=== PATIENT | female | born 1950 | race Caucasian/White ===

== ENCOUNTER 2019-09-13 08:12 | Outpatient (CLI) | payer MEDICARE, OTHER, SELFPAY ==
--- NOTE | ~2019-09-13 | MM_ITS ---
EXAMINATION: MM screening [facility] BI w brittany HISTORY: Screening mammogram TECHNIQUE: Craniocaudal and mediolateral oblique 3-D tomosynthesis images were obtained and synthetic 2-D images were generated. CAD analysis was submitted and interpreted. COMPARISON: Comparison to multiple prior studies sequentially, with oldest reviewed study dated 03/10. BREAST PARENCHYMAL COMPOSITION: There are scattered areas of fibroglandular density. FINDINGS: There is no evidence of suspicious mass, calcification, or architectural distortion to sugg est malignancy in either breast. There has been no suspicious interval change. IMPRESSION: 1. No mammographic evidence of malignancy. 2. Recommend routine screening mammography in one year. BI-RADS Category 1: Negative Reviewed, dictated and finalized at location A.
== END 2019-09-13 08:13 | disposition home or self-care (01) ==
PROVIDERS: PCP Internal Medicine; Visit Provider Internal Medicine
DX: Z12.31 Encounter for screening mammogram for malignant neoplasm of breast (principal)
CPT/HCPCS: 77063; 77067

== ENCOUNTER 2019-10-04 07:13 | Outpatient (CLI) | payer MEDICARE, OTHER, SELFPAY ==
--- NOTE | ~2019-10-04 | XR_ITS ---
EXAMINATION: XR bone survey comp/metastic DATE: 10/04/2019 07:51 INDICATION: Monoclonal gammopathy of uncertain significance. TECHNIQUE: 29 views of a skeletal survey were obtained. COMPARISON: Skeletal survey 10/02/2018, CT abdomen and pelvis 01/20/2010 FINDINGS: There is no lytic lesion to suggest multiple myeloma. There is a calcification in right upp er quadrant, consistent with cholelithiasis. There is mild cervical spondylosis and severe lumbar spo ndylosis. IMPRESSION: 1. No evidence of multiple myeloma. Reviewed, dictated and finalized at location A.
== END 2019-10-04 07:14 | disposition home or self-care (01) ==
LOC: ANHIMG 07:20
PROVIDERS: PCP Internal Medicine; Visit Provider Internal Medicine Medical Oncology
DX: D47.2 Monoclonal gammopathy (principal); M25.551 Pain in right hip
CPT/HCPCS: 77075

== ENCOUNTER 2020-01-27 07:31 | Outpatient (CLI) | payer MEDICARE, OTHER, SELFPAY ==
--- NOTE | ~2020-01-27 | PE_ITS ---
EXAMINATION: PET whole body melanoma DATE: 01/27/2020 10:03 INDICATION: Multiple myeloma. Abnormality of plasma protein. TECHNIQUE: Blood glucose level was 98 mg/dL. 10.124 mCi of 18-fluorodeoxyglucose (18-FDG) was adminis tered i.v. Low dose computed tomography (CT) images were acquired from the skull vertex to the feet f or attenuation correction and anatomic localization. Automated exposure control was employed. Dose-le ngth product (DLP) was mGy-cm. Positron emission tomography (PET) images were acquired in the same di stribution. COMPARISON: CT abdomen and pelvis 01/20/2010, skeletal survey 10/04/2019 FINDINGS: Head/neck: There is increased activity in the oropharynx, sublingual glands, submandibular glands, an d glottis without CT correlate, likely physiologic. There are no pathologically enlarged lymph nodes. Chest: There is mild scarring at the lung apices. Calcified right lung nodules and calcified right hi lar and mediastinal lymph nodes are consistent with old granulomatous disease. No pleural effusion. T he heart size is normal. No pericardial effusion. There is mild thoracic spondylosis. Abdomen/pelvis/lower limbs: The liver is normal. There are gallstones in the gallbladder, which is co ntracted. The spleen, pancreas, adrenal glands, and kidneys are normal. There are no dilated loops of bowel. There are no pathologically enlarged lymph nodes. There is no free intraperitoneal fluid. The re is severe lumbar spondylosis. IMPRESSION: 1. No evidence of malignancy. Reviewed, dictated and finalized at location A.
[2020-01-27 07:55] LABS: Glucose Point of Care 98 (65-105)
== END 2020-01-27 07:32 | disposition home or self-care (01) ==
PROVIDERS: PCP Internal Medicine; Visit Provider Internal Medicine Medical Oncology
DX: R77.9 Abnormality of plasma protein, unspecified (principal)
CPT/HCPCS: 78816; A9552

== ENCOUNTER 2020-04-14 13:55 | Outpatient (CLI) | payer MEDICARE, OTHER, SELFPAY ==
--- NOTE | ~2020-04-14 | DEXA_ITS ---
Bone Density Report Name: Deloris Wang Age: 70 Sex: Female Ethnicity: White Date of : 1950 Indication: postmenopausal; Referring Provider: Tuan Patricia Study: Bone densitometry was performed. Exam Date: April 14, 2020 Accession number: [id number] Bone Density: Region BMD T-score Z-score Classification AP Spine (L1-L4) 1.128 0.7 2.7 Normal Femoral Neck (Left) 0.693 -1.4 0.3 Osteopenia Total Hip (Left) 0.857 -0.7 0.7 Normal Total Hip Bilateral Avg 0.822 -1.0 0.4 Osteopenia Femoral Neck (Right) 0.604 -2.2 -0.5 Osteopenia Total Hip (Right) 0.785 -1.3 0.1 Osteopenia World Health Organization criteria for BMD impression classify patients as: Normal (T-score at or above -1.0), Osteopenia (T-score between -1.0 and -2.5), or Osteoporosis (T-score at or below -2.5). 10-year Fracture Risk(1): Major Osteoporotic Fracture 12% Hip Fracture 2.3% Reported Risk Factors: [place] (), Neck BMD=0.604, BMI=23.4 (1) FRAX(R) Version 3.08. Fracture probability calculated for an untreated patient. Fracture probability may be lower if the patient has received treatment. Previous Exams: Region Exam Age BMD T-score BMD Change BMD Change Date g/cm2 vs Baseline vs Previous AP Spine(L1-L4) 04/14/2020 70 1.128 0.7 -0.161(-12.5%) -0.096(-7.9%)* 10/19/2013 63 1.224 1.6 -0.064(-5.0%)# 0.015(1.2%)# 05/10/2010 60 1.210 1.5 -0.079(-6.1%)* -0.079(-6.1%)* 03/24/2008 58 1.289 2.2 Total Hip(Left) 04/14/2020 70 0.857 -0.7 -0.043(-4.8%)# -0.059(-6.5%)* 10/19/2013 63 0.917 -0.2 0.016(1.8%)# 0.021(2.3%)# 05/10/2010 60 0.896 -0.4 -0.005(-0.5%) -0.005(-0.5%) 03/24/2008 58 0.900 -0.3 Total Hip(Right) 04/14/2020 70 0.785 -1.3 -0.066(-7.8%)# -0.063(-7.4%)* 10/19/2013 63 0.848 -0.8 -0.004(-0.5%)# 0.002(0.2%)# 05/10/2010 60 0.846 -0.8 -0.006(-0.6%) -0.006(-0.6%) 03/24/2008 58 0.852 -0.7 *Denotes significance at 95% confidence level, LSC for AP Spine = 0.022 g/cm2, LSC for Total Hip = 0.027 g/cm2 Clinical Information Provided by Patient: Patient maximum height was 66 Menopause Age: 52 Drinks caffeinated beverages Onset of menses at age 15 Number of children 2 Impression: The patient has low bone mass, based on the Right Femoral Neck T-score. The patient has an estimated ten-year risk of hip fracture of 2.3% and an estimated ten-year risk of major fracture of 12%, based
== END 2020-04-14 13:56 | disposition home or self-care (01) ==
LOC: ANHIMG 13:55
PROVIDERS: PCP Internal Medicine; Visit Provider Internal Medicine
DX: Z78.0 Asymptomatic menopausal state (principal); M85.89 Other specified disorders of bone density and structure, multiple sites
CPT/HCPCS: 77080

== ENCOUNTER 2020-10-03 13:43 | Outpatient (CLI) | payer MEDICARE, OTHER, SELFPAY ==
--- NOTE | ~2020-10-03 | XR_ITS ---
EXAMINATION: XR bone survey comp/metastic EXAM DATE: 10/03/2020 14:11 INDICATION: Smoldering myeloma. Right hip pain and left lower leg pain. TECHNIQUE: Frontal and lateral projections of following regions obtained; right humerus, left humeru s, right forearm, left forearm, right femur, left femur, right tibia, left tibia, lumbar spine, thora cic spine, cervical spine. Lateral projection skull. Frontal chest x-ray. Comparison is made to yossi or examination from 10/04/2019. FINDINGS: There are no osteoblastic or osteolytic lesions identified. Moderate to severe disc diseas e L2-3 and L4-5. Otherwise mild bony degenerative changes. No confluent consolidation, pneumothorax o r pleural effusion suspected. Cardiomediastinal silhouette is normal. IMPRESSION: No radiographic evidence of osseous malignancy. Reviewed, dictated and finalized at location A.
== END 2020-10-03 13:44 | disposition home or self-care (01) ==
LOC: ANHIMG 13:47
PROVIDERS: PCP Internal Medicine; Visit Provider Internal Medicine Medical Oncology
DX: C90.00 Multiple myeloma not having achieved remission (principal); M89.8X9 Other specified disorders of bone, unspecified site; M47.816 Spondylosis without myelopathy or radiculopathy, lumbar region
CPT/HCPCS: 77075

== ENCOUNTER 2020-12-06 11:28 | Outpatient (CLI) | payer MEDICARE, OTHER, SELFPAY ==
--- NOTE | ~2020-12-06 | MM_ITS ---
EXAMINATION: MM screening [facility] BI w brittany HISTORY: Screening mammogram TECHNIQUE: Craniocaudal and mediolateral oblique 3-D tomosynthesis images were obtained and synthetic 2-D images were generated. CAD analysis was submitted and interpreted. COMPARISON: 09/13/2019, 09/11/2018, 07/15/2017 bilateral digital screening mammogram examinations BREAST PARENCHYMAL COMPOSITION: There are scattered areas of fibroglandular density. FINDINGS: There is no evidence of suspicious mass, calcification, or architectural distortion to sugg est malignancy in either breast. There has been no suspicious interval change. IMPRESSION: 1. No mammographic evidence of malignancy. 2. Recommend routine screening mammography in one year. BI-RADS Category 1: Negative Reviewed, dictated and finalized at location A.
== END 2020-12-06 11:29 | disposition home or self-care (01) ==
PROVIDERS: PCP Internal Medicine; Visit Provider Internal Medicine
DX: Z12.31 Encounter for screening mammogram for malignant neoplasm of breast (principal)
CPT/HCPCS: 77063; 77067

== ENCOUNTER 2022-01-19 08:33 | Outpatient (CLI) | payer MEDICARE, OTHER, SELFPAY ==
--- NOTE | ~2022-01-19 | MM_ITS ---
EXAMINATION: MM screening [facility] BI w brittany HISTORY: Screening mammogram TECHNIQUE: Craniocaudal and mediolateral oblique 3-D tomosynthesis images were obtained and synthetic 2-D images were generated. CAD analysis was submitted and interpreted. COMPARISON: 11/2020, 09/13/2019, 09/11/2018 bilateral screening mammogram examinations BREAST PARENCHYMAL COMPOSITION: There are scattered areas of fibroglandular density. FINDINGS: There is no evidence of suspicious mass, calcification, or architectural distortion to sugg est malignancy in either breast. There has been no suspicious interval change. IMPRESSION: 1. No mammographic evidence of malignancy. 2. Recommend routine screening mammography in one year. BI-RADS Category 1: Negative Reviewed, dictated and finalized at location A.
== END 2022-01-19 08:34 | disposition home or self-care (01) ==
LOC: ANHIMG 08:35
PROVIDERS: PCP Internal Medicine; Visit Provider Internal Medicine
DX: Z12.31 Encounter for screening mammogram for malignant neoplasm of breast (principal)
CPT/HCPCS: 77063; 77067

== ENCOUNTER 2022-02-26 16:55 | Emergency (ER) | payer MEDICARE, OTHER, SELFPAY ==
[2022-02-26] VITALS (42 sets, daily range): BP systolic 133–158; BP diastolic 59–77; PULSE 82; RESP 20; TEMP 36.6; O2SAT 92–100
--- NOTE | ~2022-02-26 | CT_ITS ---
EXAMINATION: CTA chest abdomen pelvis DATE: 02/26/2022 21:21 INDICATION: L flank pain, across upper ABD, r/o PE/dissect . TECHNIQUE: Computed tomography (CT) of the chest, abdomen, and pelvis was performed with 100 mL Omnip aque-350 intravenous contrast in the arterial phase. Automated exposure control and iterative reconst ruction technique were employed. The dose-length product was 499.84 mGy-cm. COMPARISON: CT abdomen pelvis without contrast, same date FINDINGS: Thoracic aorta: No significant dilation, dissection or calcification. Lung parenchyma and airways: Lungs and airways are clear. No central or segmental pulmonary emboli de tected. Thoracic inlet, axillae and chest wall: No thyroid or soft tissue mass. No axillary lymphadenopathy. Mediastinum: No mass or lymphadenopathy. Heart and pericardium: Normal heart size. No pericardial effusion. Coronary artery calcifications: Mild. Pleura: No effusion or mass. Thoracic bones: No acute osseous finding in the chest. ABDOMEN/PELVIS: Liver: Mild intrahepatic biliary dilation. Biliary/Gallbladder: Gallbladder is absent. We demonstration of the course presumed postsurgical calc ification in the gallbladder fossa mild dilation of the common duct Pancreas: No mass. Pancreatic duct visualized but not overtly dilated. Spleen: Normal. Adrenals:No mass. Kidneys: No mass, stone, or hydronephrosis. GI tract: Antral wall edema, not evident in the prior noncontrast study. No small or large bowel dila tion. Normal appendix. Mesentery/Peritoneum: No ascites, mass, or free air. Retroperitoneum: No mass. No aortic aneurysm, dissection, or significant branch vessel stenosis. Pelvis: Pelvic organs are within normal limits Soft Tissues: Soft tissues and body wall unremarkable. Abdominopelvic bones: No acute osseous finding in the abdomen/pelvis. IMPRESSION: 1. No aortic aneurysm, dissection, or significant branch vessel stenosis. 2. No central or segmental pulmonary embolus. The study was not optimized for subsegmental and more d istal emboli. 3. Antral gastritis. 4. Mild intrahepatic and extrahepatic biliary duct dilatation, more evident in this postcontrast stud y, presumably due to post cholecystectomy state. Correlate with obstructive biliary labs. Reviewed, dictated and finalized at location K. IMPRESSION: 1. No aortic aneurysm, dissection, or significant branch vessel stenosis. 2. No central or segmental pulmonary embolus. The study was not optimized for s ubsegmental and more distal emboli. 3. Antral gastritis. 4. Mild intrahepatic and extrahepatic biliary duct dilatation, more evident in this postcontrast study, presumably due to post cholecystectomy state. Correlat e with obstructive biliary labs.
--- NOTE | ~2022-02-26 | CT_ITS ---
EXAMINATION: CT abdomen pelvis wo con DATE: 02/26/2022 18:18 INDICATION: L flank/Lsided ABD pain, r/o stone TECHNIQUE: Computed tomography (CT) of the abdomen and pelvis was performed without intravenous contr ast. Automated exposure control and iterative reconstruction technique were employed. The dose-length product was 312.31 mGy-cm. COMPARISON: 01/20/2010. FINDINGS: Lower thorax: Unremarkable Liver: Normal. Biliary/Gallbladder: Gallbladder is absent. Coarse calcification in the gallbladder fossa, stable and likely postsurgical. No bile duct dilation. Pancreas: No mass or duct dilation. Spleen: Normal. Adrenals:No mass. Kidneys: No mass, stone, or hydronephrosis. GI tract: No small or large bowel dilation. Normal appendix. Mesentery/Peritoneum: No ascites, mass, or free air. Retroperitoneum: No mass. Pelvis: Pelvic organs are within normal limits. Soft Tissues: Soft tissues and body wall unremarkable. Bones: No acute osseous finding. IMPRESSION: No acute abdominopelvic process detected. No CT evidence of urolithiasis. Reviewed, dictated and finalized at location K.
[2022-02-26 17:15] LABS: Basophils Absolute Auto 0.1 K/mm3 (0.0-0.1); Basophils Percent Auto 0.9 % (0.2-1.2); Eosinophils Absolute Auto 0.1 K/mm3 (0-0.3); Hematocrit 38.1 % (37.0-47.0); Hemoglobin 12.6 g/dL (12.0-15.0); Immature Granulocyte Absolute 0.01 K/mm3 (0.00-0.031); Immature Granulocyte Percent A 0.2 % (0-0.5); Lymphocytes Absolute Auto 2.23 K/mm3 (0.9-3.2); Lymphocytes Percent Auto 38.4 % (18.3-44.2); Mean Corpuscular HGB Conc 33.1 g/dl (32-36); Mean Corpuscular Hemoglobin 29.6 pg (26-34); Mean Corpuscular Volume 89.4 fl (80-100); Mean Platelet Volume 9.3 fl (7.4-10.4); Monocytes Absolute Auto 0.5 K/mm3 (0.1-0.6); Monocytes Percent Auto 9.1 % (2.6-8.5); Neutrophils Absolute Auto 2.9 K/mm3 (1.3-6.7); Neutrophils Percent Auto 50.4 % (45.5-73.1); Platelet Count Result 283 k/mm3 (150-375); Red Blood Count 4.26 M/mm3 (4.2-5.4); Red Cell Distribution Width 12.5 % (11.5-14.5); White Blood Count 5.8 K/mm3 (4.5-10.0)
[2022-02-26 17:25] LABS: Alanine Aminotransferase 13 U/L (6-35); Albumin Level 4.4 g/dL (3.5-5.1); Alkaline Phosphatase 105 U/L (38-126); Anion Gap 12 mmol/L (8-16); Aspartate Amino Transferase 25 U/L (14-36); Bilirubin,Total 0.3 mg/dL (0.2-1.3); Blood Urea Nitrogen 15 mg/dL (7-17); Calcium 9.8 mg/dL (8.4-10.2); Carbon Dioxide 29 mmol/L (22-30); Chloride 99 mmol/L (98-107); Estimated CRCL calculation 53 ml/min; Estimated Glomerular Filt Rate > 60; Glucose 117 mg/dL (65-110); Lipase 114 U/L (23-300); Potassium 3.8 mmol/L (3.4-5.0); Sodium 140 mmol/L (137-145)
[2022-02-26 18:03] LABS: Add Urine Microscopic? NO; Appearance Urine Clear (Clear); Bilirubin Urine Negative (Negative); Blood Urine Negative (Negative); Color Urine Yellow (Yellow); Glucose Urine UA Negative (Negative); Ketones Urine Negative (Negative); Leukocyte Esterase Ur Negative LEU/UL (Negative); Nitrate Urine Negative (Negative); Protein Urine Negative (Negative); Specific Grav Ur 1.015 (1.001-1.035); Urobilinogen Urine 0.2 mg/dL (<2.0); pH Urine 8.5 (5.0-9.0)
--- NOTE | 2022-02-26 18:07 | ED.ABDPAIN ---
HPI - Abdominal Pain General Chief Complaint: Abdominal Pain Stated Complaint: upper abd pain Time Seen by Provider: 02/26/22 17:51 Source: patient Mode of arrival: EMS Limitations: no limitations History of Present Illness HPI narrative: Patient is a 72-year-old female who presents to the ED via EMS with report of LUQ/L flank pain. Patient reports she suddenly developed pain around 4 PM today after urinating. She denied any dysuria, hematuria, difficulty urinating. Pain was constant in her left upper abdomen and left flank region. She did not try anything for pain. EMS was called. Patient also reports having nausea, no vomiting. She was given 4 mg of Zofran IV via EMS and does report improvement of nausea. Patient has never had pain like this before. Denies any history of kidney stones or diverticulitis. Denies any recent diarrhea or constipation. No fevers. Related Data Home Medications Medication Instructions Recorded Confirmed ascorbic acid (vitamin C) 500 mg 1,000 mg PO 03/21/20 03/21/20 capsule aspirin 81 mg tablet,delayed 81 mg PO DAILY 03/21/20 03/21/20 release (Adult Low Dose Aspirin) omega-3 fatty acids 1,000 mg 1,000 mg PO DAILY 03/21/20 03/21/20 capsule (Fish Oil Concentrate) cholecalciferol (vitamin D3) 25 25 mcg PO DAILY 04/10/21 mcg (1,000 unit) capsule Allergies Allergy/AdvReac Type Severity Reaction Status Date / Time sulfamethoxazole Allergy Mild itching Verified 02/26/22 17:01 Sulfa (Sulfonamide Allergy Unknown Itching Verified 02/26/22 17:01 Antibiotics) Review of Systems Review of Systems: CONSTITUTIONAL: Denies fever, chills, or sweats. CARDIOVASCULAR: Denies chest pain. RESPIRATORY: Denies dyspnea. GASTROINTESTINAL: Reports nausea, L sided ABD pain. Denies constipation, vomiting, or diarrhea. GENITOURINARY: Denies dysuria or hematuria. MUSCULOSKELETAL: Reports L flank pain. All systems reviewed & are unremarkable except as noted in HPI and below PMFSH Past Medical History Medical History (Updated 02/26/22 @ 23:44 by Tatyana Ge PA-C) Anemia Chicken pox Cholecystectomy planned 2008 Family history of hemochromatosis History of one miscarriage Hyperlipidemia LDL goal <130 Monoclonal gammopathy of unknown significance Mumps Osteopenia Osteoporosis Raynaud's disease with gangrene Shingles Smoldering myeloma Vitamin D deficiency Surgical History Surgical History (Updated 02/26/22 @ 18:12 by Tatyana Ge PA-C) History of cholecystectomy Hx of hysterectomy Family History Family History Father Lung cancer Kidney disease Mother Cardiomyopathy Social History Social History Social History: Caffeine-3 cups daily Smoking status: Never smoker Second hand tobacco smoke exposure: No Alcohol intake: current Alcohol use details: occasionally wine Exam Narrative: GENERAL: Well appearing, well-nourished, non-toxic, in no acute distress. HEAD: Normocephalic, atraumatic. NECK: Supple. No adenopathy, no masses. RESPIRATORY: Airway patent, respirations nonlabored. Clear to auscultation bilaterally, no rales, rhonchi, wheezing. CARDIOVASCULAR: Regular rate and rhythm without murmurs, rubs, or gallops. Peripheral pulses 2+ and equal bilaterally. ABDOMINAL: Soft, tenderness to palpation in left upper quadrant/left lateral abdomen. Nondistended, no hepatosplenomegaly. Normoactive BS. Left-sided CVA tenderness to percussion. MUSCULOSKELETAL: Moves all extremities. Strength/ROM intact without gross deformities. No midline spinal tenderness. Mild tenderness palpation left lower back. SKIN: Warm, dry, normal color. No rashes. NEURO: A&O X3. Speech clear. Cranial nerves II-XII grossly intact. Steady gait. No ataxic movements. PSYCHIATRIC: Appropriate mood and affect. Normal interaction. Course Vital Signs Vital signs: Vital Signs
[2022-02-26 18:13] LABS: Bacteria Urine Trace /hpf; Squamous Epithelial Cell Urine Rare /hpf (Few); WBC Urine 0-3 /hpf
[2022-02-26] MEDS: MORPHINE SULFATE (*CRX) 2 MG/ML INJ IV PUSH (19:37)
[2022-02-26] MEDS: SODIUM CHLORIDE 0.9% IV 1,000 ML 999 ML IV CONT ×2 (19:38→22:17)
[2022-02-26] MEDS: ONDANSETRON INJ 4 MG/2 ML VIAL IV PUSH (20:47)
[2022-02-26] MEDS: HYDROmorphone HCL INJ (*CRX) 1 MG/ML SYR IV PUSH (20:48)
[2022-02-26 21:44] LABS: Troponin I < 0.012 ng/mL (0.000-0.034)
[2022-02-26 21:45] LABS: D Dimer < 0.27 ug/mL (<0.48)
[2022-02-26] MEDS: BELLADONNA ALK/PHENOB ELIX 10 ML, MAG HYDROX/ALUMINUM HYD/SIMETH 30 ML, LIDOCAINE HCL 2... PO (22:16)
[2022-02-26] MEDS: KETOROLAC 30 MG/ML VIAL (*BKC) IV PUSH (22:17)
[2022-02-26] MEDS: METOCLOPRAMIDE HCL INJ 10 MG/2 ML VIAL IV PUSH (22:17)
[2022-02-27 00:01] VITALS: BP 120/65; O2SAT 98
[2022-02-27 00:02] VITALS: O2SAT 98
[2022-02-27 00:15] VITALS: O2SAT 100
[2022-02-27 00:16] VITALS: BP 121/72; O2SAT 100
[2022-02-27 00:31] VITALS: BP 133/70
== END 2022-02-27 01:14 | disposition home or self-care (01) ==
PROVIDERS: Physician Assistant; Emergency Provider Emergency Medicine; PCP Internal Medicine
DX: R10.12 Left upper quadrant pain (principal); K29.70 Gastritis, unspecified, without bleeding; D64.9 Anemia, unspecified; E78.5 Hyperlipidemia, unspecified; M85.80 Other specified disorders of bone density and structure, unspecified site; M81.0 Age-related osteoporosis without current pathological fracture; I73.01 Raynaud's syndrome with gangrene; E55.9 Vitamin D deficiency, unspecified; D47.2 Monoclonal gammopathy; R93.2 Abnormal findings on diagnostic imaging of liver and biliary tract
CPT/HCPCS: 36415; 71275; 74174; 74176; 80053; 81003; 83690; 84484; 85025; 85380; 96361; 96374; 96375; 99284; A9270; J1170; J1885; J2270; J2405; J2765; J7030; Q9967

== ENCOUNTER 2022-04-22 09:15 | Outpatient (CLI) | payer MEDICARE, OTHER, SELFPAY ==
[2022-04-22 18:47] LABS: Anion Gap 14 mmol/L (8-16); Blood Urea Nitrogen 10 mg/dL (7-17); Calcium 9.6 mg/dL (8.4-10.2); Carbon Dioxide 28 mmol/L (22-30); Chloride 100 mmol/L (98-107); Cholesterol 201 mg/dL (0-200); Estimated Glomerular Filt Rate > 60; Glucose 97 mg/dL (65-110); HDL Direct 45 mg/dL; Sodium 142 mmol/L (137-145); Triglycerides 152 mg/dL (<150)
[2022-04-22 18:58] LABS: LDL Cholesterol Direct 101 mg/dL
[2022-04-22 19:03] LABS: Vitamin D 25 Hydroxy 38.4 ng/mL
== END 2022-04-22 09:16 | disposition home or self-care (01) ==
LOC: ANHGOSHLAB 09:18
PROVIDERS: PCP Internal Medicine; Visit Provider Clinical Nurse Specialist
DX: E55.9 Vitamin D deficiency, unspecified (principal); E78.49 Other hyperlipidemia; E78.5 Hyperlipidemia, unspecified
CPT/HCPCS: 36415; 80048; 80061; 82306

== ENCOUNTER 2023-01-09 11:32 | Outpatient (CLI) | payer MEDICARE, OTHER, SELFPAY ==
--- NOTE | ~2023-01-09 | XR_ITS ---
EXAMINATION: XR bone survey comp/metastic DATE: 01/09/2023 12:29 INDICATION: Monoclonal gammopathy. TECHNIQUE: 33 views of a skeletal survey were obtained. COMPARISON: Skeletal survey 10/03/2020, CT chest, abdomen, and pelvis 02/26/2022 FINDINGS: The chest demonstrates clear lungs without pneumonia, pleural effusion, or pneumothorax. Th e heart size is normal. There is mild cervical spondylosis. There is mild thoracic spondylosis and se gurwinder lumbar spondylosis. There is mild osteoarthritis of the hips. There is no abnormal lytic lesion. IMPRESSION: 1. No evidence of multiple myeloma. Reviewed, dictated and finalized at location E.
== END 2023-01-09 11:33 | disposition home or self-care (01) ==
PROVIDERS: PCP Internal Medicine; Visit Provider Internal Medicine Medical Oncology
DX: D47.2 Monoclonal gammopathy (principal)
CPT/HCPCS: 77075

== ENCOUNTER 2023-04-24 08:09 | Outpatient (CLI) | payer MEDICARE, OTHER, SELFPAY ==
[2023-04-24 20:06] LABS: Alanine Aminotransferase 14 U/L (6-35); Albumin Level 4.6 g/dL (3.5-5.1); Alkaline Phosphatase 74 U/L (38-126); Anion Gap 8 mmol/L (8-16); Aspartate Amino Transferase 36 U/L (14-36); Bilirubin,Total 0.9 mg/dL (0.2-1.3); Blood Urea Nitrogen 15 mg/dL (7-17); Calcium 10.1 mg/dL (8.4-10.2); Carbon Dioxide 29 mmol/L (22-30); Chloride 102 mmol/L (98-107); Cholesterol 223 mg/dL (0-200); Estimated Glomerular Filt Rate > 60; Glucose 79 mg/dL (65-110); HDL Direct 57 mg/dL; Potassium 4.1 mmol/L (3.4-5.0); Sodium 139 mmol/L (137-145); Triglycerides 109 mg/dL (<150)
[2023-04-24 20:17] LABS: LDL Cholesterol Direct 114 mg/dL
[2023-04-24 20:24] LABS: Vitamin D 25 Hydroxy 50.5 ng/mL
== END 2023-04-24 08:10 | disposition home or self-care (01) ==
LOC: ANHGOSHLAB 08:11
PROVIDERS: PCP Internal Medicine; Visit Provider Clinical Nurse Specialist
DX: E55.9 Vitamin D deficiency, unspecified (principal); E78.49 Other hyperlipidemia; C90.00 Multiple myeloma not having achieved remission
CPT/HCPCS: 36415; 80053; 80061; 82306; 85025

== ENCOUNTER 2023-04-25 10:19 | Outpatient (CLI) | payer MEDICARE, OTHER, SELFPAY ==
[2023-04-25 11:48] LABS: Basophils Absolute Auto 0.1 K/mm3 (0.0-0.1); Basophils Percent Auto 1.3 % (0.2-1.2); Eosinophils Absolute Auto 0.1 K/mm3 (0-0.3); Eosinophils Percent Auto 0.9 % (0-4.4); Hematocrit 38.8 % (37.0-47.0); Hemoglobin 12.5 g/dL (12.0-15.0); Immature Granulocyte Absolute 0.01 K/mm3 (0.00-0.031); Immature Granulocyte Percent A 0.2 % (0-0.5); Lymphocytes Absolute Auto 2.07 K/mm3 (0.9-3.2); Lymphocytes Percent Auto 37.8 % (18.3-44.2); Mean Corpuscular HGB Conc 32.2 g/dl (32-36); Mean Corpuscular Hemoglobin 29.4 pg (26-34); Mean Corpuscular Volume 91.3 fl (80-100); Mean Platelet Volume 9.4 fl (7.4-10.4); Monocytes Absolute Auto 0.5 K/mm3 (0.1-0.6); Neutrophils Absolute Auto 2.8 K/mm3 (1.3-6.7); Neutrophils Percent Auto 50.8 % (45.5-73.1); Platelet Count Result 269 k/mm3 (150-375); Red Blood Count 4.25 M/mm3 (4.2-5.4); Red Cell Distribution Width 12.6 % (11.5-14.5); White Blood Count 5.5 K/mm3 (4.5-10.0)
== END 2023-04-25 10:20 | disposition home or self-care (01) ==
LOC: ANHGOSHLAB 10:23
PROVIDERS: PCP Internal Medicine; Visit Provider Clinical Nurse Specialist
DX: C90.00 Multiple myeloma not having achieved remission (principal); E55.9 Vitamin D deficiency, unspecified; E78.49 Other hyperlipidemia
CPT/HCPCS: 36415; 85025

== ENCOUNTER 2023-06-19 08:30 | Outpatient (CLI) | payer MEDICARE, OTHER, SELFPAY ==
--- NOTE | ~2023-06-19 | MM_ITS ---
EXAMINATION: MM screening [facility] BI w brittany HISTORY: Screening mammogram TECHNIQUE: Craniocaudal and mediolateral oblique 3-D tomosynthesis images were obtained and synthetic 2-D images were generated. CAD analysis was submitted and interpreted. COMPARISON: 01/19/2022, 12/16/2020, 09/13/2019 bilateral screening mammogram examinations BREAST PARENCHYMAL COMPOSITION: There are scattered areas of fibroglandular density. FINDINGS: There is no evidence of suspicious mass, calcification, or architectural distortion to sugg est malignancy in either breast. There has been no suspicious interval change. IMPRESSION: 1. No mammographic evidence of malignancy. 2. Recommend routine screening mammography in one year. BI-RADS Category 1: Negative Reviewed, dictated and finalized at location A. UBER
== END 2023-06-19 08:31 | disposition home or self-care (01) ==
PROVIDERS: PCP Internal Medicine; Visit Provider Internal Medicine
DX: Z12.31 Encounter for screening mammogram for malignant neoplasm of breast (principal)
CPT/HCPCS: 77063; 77067

== ENCOUNTER 2023-06-25 15:57 | Outpatient (CLI) | payer MEDICARE, OTHER, SELFPAY ==
--- NOTE | ~2023-06-25 | DEXA_ITS ---
Bone Density Report Name: JOHNSON SUTTON Age: 73 Sex: Female Ethnicity: White Date of : 1950 Indication: postmenopausal; screening for osteoporosis; Referring Provider: BENY GOMEZ Study: Bone densitometry was performed. Exam Date: June 25, 2023 Accession number: [id number] Bone Density: Region BMD T-score Z-score Classification AP Spine(L1, L3, L4) 1.116 0.6 2.8 Normal Femoral Neck (Left) 0.686 -1.5 0.4 Osteopenia Total Hip (Left) 0.730 -1.7 -0.2 Osteopenia Femoral Neck (Right) 0.585 -2.4 -0.5 Osteopenia Total Hip (Right) 0.696 -2.0 -0.4 Osteopenia Total Hip Mean 0.713 -1.9 -0.3 Osteopenia World Health Organization criteria for BMD impression classify patients as: Normal (T-score at or above -1.0), Osteopenia (T-score between -1.0 and -2.5), or Osteoporosis (T-score at or below -2.5). 10-year Fracture Risk: FRAX not reported because: Treated for osteoporosis Clinical Information Provided by Patient: Is being treated for osteoporosis Has used the following medications: Vitamin D, Calcium Patient maximum height was 66 Menopause Age: 52 Drinks caffeinated beverages Onset of menses at age 15 Number of children 2 Impression: The patient has low bone mass, based on the Right Femoral Neck T-score. Discussion: It is important to ask patients whether they are taking their medications and to encourage continued and appropriate compliance with their osteoporosis therapies to reduce fracture risk. It is also important to review their risk factors and encourage appropriate calcium and vitamin D intakes, exercise, fall prevention and other lifestyle measures. Follow-Up: Consider a repeat BMD and Vertebral Fracture Assessment (VFA) exam in 2 years or sooner if medically necessary, to reassess this patient's status. Reported by: MONICA on 06/25/2023 4:16:00 PM. Reviewed, dictated and finalized at location AVani RICE
== END 2023-06-25 15:58 | disposition home or self-care (01) ==
LOC: ANHIMG 15:58
PROVIDERS: PCP Internal Medicine; Visit Provider Clinical Nurse Specialist
DX: M85.89 Other specified disorders of bone density and structure, multiple sites (principal); Z78.0 Asymptomatic menopausal state
CPT/HCPCS: 77080

== ENCOUNTER 2024-02-04 17:03 | Emergency (ER) | payer MEDICARE, OTHER, SELFPAY ==
[2024-02-04 17:28] VITALS: BP 132/64; PULSE 82; RESP 16; TEMP 36.3; O2SAT 100
--- NOTE | 2024-02-04 17:53 | ED.SKABFB ---
HPI - Skin/Abscess/Foreign Bdy General Chief complaint: Skin/Abscess/Foreign Body Stated complaint: Bug Bite Left Leg Time Seen by Provider: 02/04/24 17:53 Source: patient, RN notes reviewed and old records reviewed Mode of arrival: ambulatory Limitations: no limitations History of Present Illness HPI narrative: Patient presents with complaints of what she believes to be insect bites on the right lower leg. She reports they have been present for about 1 week. She noticed some right after doing some yd work. She reports that 1 it is more itchy, the other is more tender to the touch. One of them does have some purulent drainage. She denies any fever, chills, sweats. She voices no other concerns or complaints at this time Related Data Home Medications Medication Instructions Recorded Confirmed ascorbic acid (vitamin C) 500 mg 1,000 mg PO 03/21/20 05/01/23 capsule aspirin 81 mg tablet,delayed 81 mg PO DAILY 03/21/20 02/04/24 release (Adult Low Dose Aspirin) omega-3 fatty acids 1,000 mg 1,000 mg PO DAILY 03/21/20 02/04/24 capsule (Fish Oil Concentrate) cholecalciferol (vitamin D3) 25 25 mcg PO DAILY 04/10/21 02/04/24 mcg (1,000 unit) capsule Allergies Allergy/AdvReac Type Severity Reaction Status Date / Time sulfamethoxazole Allergy Mild itching Verified 02/04/24 17:54 Sulfa (Sulfonamide Allergy Unknown Itching Verified 02/04/24 17:54 Antibiotics) Review of Systems Review of Systems: All systems reviewed & are unremarkable except as noted in HPI and below Constitutional: Constitutional: Reports no additional constitutional complaints ENT: Reports system reviewed and no additional complaints, except as documented Cardiovascular: Cardiovascular: Reports no additional cardiovascular complaints Respiratory: Respiratory: Reports no additional respiratory complaints Gastrointestinal: Gastrointestinal: Reports no additional gastrointestinal complaints Integumentary/Breasts: Skin/Breast: Reports as per HPI [facility] Past Medical History Medical History Anemia Chicken pox Cholecystectomy planned 2008 Family history of hemochromatosis History of one miscarriage Hyperlipidemia LDL goal <130 Monoclonal gammopathy of unknown significance Mumps Osteopenia Osteoporosis Raynaud's disease with gangrene Shingles Smoldering myeloma Vitamin D deficiency Surgical History Surgical History History of cholecystectomy Hx of hysterectomy Family History Family History Father Lung cancer Kidney disease Mother Cardiomyopathy Social History Social History Social History: Caffeine-3 cups daily Smoking status: Never smoker Second hand tobacco smoke exposure: No Alcohol intake: current Alcohol use details: occasionally wine Lack of Transportation: No Lack of Food: Never True Current Housing: I Have Housing Concerned About Future Housing: No Difficulty Paying Gas/Electric Bills: No Difficulty Paying for Meds: No Currently Unemployed: No Education: High School Diploma/GED Difficulty w/ Childcare or Family Care: No Exam Const: General: cooperative, no acute distress, alert and awake Orientation/consciousness: oriented to person, oriented to place and oriented to time HENMT: Head: normal to inspection Resp: Effort & Inspection: normal respiratory effort and able to speak in complete sentences Auscultation: clear to auscultation bilaterally, no crackles, no rales, no rhonchi and no wheezes Cardio: Palpation: normal PMI Rate: regular rate Rhythm: regular rhythm Heart sounds: S1 normal heart sound present and S2 normal heart sound present Neuro: General: oriented to person, oriented to place and oriented to time Cranial nerves: Yes CN's II-XII intact bila
== END 2024-02-04 18:14 | disposition home or self-care (01) ==
PROVIDERS: Emergency Provider Nurse Practitioner Family; PCP Internal Medicine
DX: S80.861A Insect bite (nonvenomous), right lower leg, initial encounter (principal); W57.XXXA Bitten or stung by nonvenomous insect and other nonvenomous arthropods, initial encounter; E78.5 Hyperlipidemia, unspecified; M85.80 Other specified disorders of bone density and structure, unspecified site; M81.0 Age-related osteoporosis without current pathological fracture; I73.00 Raynaud's syndrome without gangrene; D47.2 Monoclonal gammopathy; E55.9 Vitamin D deficiency, unspecified
CPT/HCPCS: 99213; G0463

== ENCOUNTER 2024-03-11 09:42 | Emergency (ER) | payer MEDICARE, OTHER, SELFPAY ==
[2024-03-11 10:07] VITALS: BP 123/64; PULSE 80; RESP 16; TEMP 36.9; O2SAT 100
--- NOTE | 2024-03-11 10:16 | ED.EYEPROB ---
HPI - Eye Problem General Chief complaint: Eye Problems Stated complaint: EYE REDNESS Time Seen by Provider: 03/11/24 10:16 Source: patient, RN notes reviewed and old records reviewed Mode of arrival: ambulatory Limitations: no limitations History of Present Illness HPI Narrative: 74 year old female who presents to [facility] with complaints of left eye redness since yesterday with left eye matted shut this morning with some itching to her left eye. Patient reports no change to her vision,denies any sharp pain to her left eye. Patient reports no recent URI symptoms.Patient reports that she normally wears contacts has removed them and she has been wearing her glasses, Visual acuity without correction 20/40 bilaterally. MD chief complaint: eye redness and other (matting left eye) Onset (ago): day(s) (day 2 of symptoms) Duration: constant Location: left eye Severity scale (1-10): 5 Treatments Prior to Arrival: none Related Data Home Medications Medication Instructions Recorded Confirmed ascorbic acid (vitamin C) 500 mg 1,000 mg PO DAILY 03/21/20 03/11/24 capsule aspirin 81 mg tablet,delayed 81 mg PO DAILY 03/21/20 03/11/24 release (Adult Low Dose Aspirin) omega-3 fatty acids 1,000 mg 1,000 mg PO DAILY 03/21/20 03/11/24 capsule (Fish Oil Concentrate) cholecalciferol (vitamin D3) 25 25 mcg PO DAILY 04/10/21 03/11/24 mcg (1,000 unit) capsule Allergies Allergy/AdvReac Type Severity Reaction Status Date / Time sulfamethoxazole Allergy Mild itching Verified 03/11/24 10:09 Sulfa (Sulfonamide Allergy Unknown Itching Verified 03/11/24 10:09 Antibiotics) Review of Systems Review of Systems: CONSTITUTIONAL: Denies fever, chills, or sweats. EYES: Denies visual changes. Reports redness,, irritation, discharge from her left eye ENT: Denies rhinorrhea, congestion, sore throat, or otalgia. CARDIOVASCULAR: Denies chest pain, palpitations, or edema. RESPIRATORY: Denies cough or dyspnea. SKIN: Denies rash or itching. NEUROLOGIC: Denies headache All systems reviewed & are unremarkable except as noted in HPI and below PMFSH Past Medical History Medical History Anemia Chicken pox Cholecystectomy planned 2008 Family history of hemochromatosis History of one miscarriage Hyperlipidemia LDL goal <130 Monoclonal gammopathy of unknown significance Mumps Osteopenia Osteoporosis Raynaud's disease with gangrene Shingles Smoldering myeloma Vitamin D deficiency Surgical History Surgical History History of cholecystectomy Hx of hysterectomy Family History Family History Father Lung cancer Kidney disease Mother Cardiomyopathy Social History Social History Social History: Caffeine-3 cups daily Smoking status: Never smoker Second hand tobacco smoke exposure: No Alcohol intake: current Alcohol use details: occasionally wine Lack of Transportation: No Lack of Food: Never True Current Housing: I Have Housing Concerned About Future Housing: No Difficulty Paying Gas/Electric Bills: No Difficulty Paying for Meds: No Currently Unemployed: No Education: High School Diploma/GED Difficulty w/ Childcare or Family Care: No Comments At time of signature, agree with nursing past medical, surgical, social and family history. There is no relevant family history pertinent to the presenting complaint Exam Narrative: GENERAL: Well-appearing, well-nourished, and in no acute distress. HEAD: Normocephalic, atraumatic. EYES: PERRLA and EOMI. Upper and lower eyelids unremarkable. No periorbital cellulitis noted. Sclera and conjunctivae injected left eye with mucoid drainage, no sharp pain to her left eye reports itchy ENT: Nares clear, no rhinorrhea or epistaxis. Mucous membran
== END 2024-03-11 10:32 | disposition home or self-care (01) ==
PROVIDERS: Emergency Provider Registered Nurse; PCP Internal Medicine
DX: H10.9 Unspecified conjunctivitis (principal); E78.5 Hyperlipidemia, unspecified; M85.80 Other specified disorders of bone density and structure, unspecified site; M81.0 Age-related osteoporosis without current pathological fracture; I73.00 Raynaud's syndrome without gangrene; E55.9 Vitamin D deficiency, unspecified
CPT/HCPCS: 99213; G0463

== ENCOUNTER 2024-05-13 08:11 | Outpatient (CLI) | payer MEDICARE, OTHER, SELFPAY ==
[2024-05-13 14:05] LABS: Basophils Percent Auto 0.9 % (0.2-1.2); Eosinophils Absolute Auto 0.1 K/mm3 (0-0.3); Eosinophils Percent Auto 3.1 % (0-4.4); Hematocrit 40.4 % (37.0-47.0); Hemoglobin 12.9 g/dL (12.0-15.0); Immature Granulocyte Absolute 0.01 K/mm3 (0.00-0.031); Immature Granulocyte Percent A 0.2 % (0-0.5); Lymphocytes Absolute Auto 1.78 K/mm3 (0.9-3.2); Mean Corpuscular HGB Conc 31.9 g/dl (32-36); Mean Corpuscular Hemoglobin 29.8 pg (26-34); Mean Corpuscular Volume 93.3 fl (80-100); Mean Platelet Volume 9.6 fl (7.4-10.4); Monocytes Absolute Auto 0.5 K/mm3 (0.1-0.6); Neutrophils Absolute Auto 2.1 K/mm3 (1.3-6.7); Neutrophils Percent Auto 45.8 % (45.5-73.1); Platelet Count Result 298 k/mm3 (150-375); Red Blood Count 4.33 M/mm3 (4.2-5.4); Red Cell Distribution Width 12.3 % (11.5-14.5); White Blood Count 4.6 K/mm3 (4.5-10.0)
[2024-05-13 14:45] LABS: Alanine Aminotransferase 13 U/L (6-35); Albumin Level 4.4 g/dL (3.5-5.1); Alkaline Phosphatase 82 U/L (38-126); Anion Gap 6 mmol/L (4-12); Aspartate Amino Transferase 50 U/L (14-36); Bilirubin,Total 0.7 mg/dL (0.2-1.3); Blood Urea Nitrogen 11 mg/dL (7-17); Carbon Dioxide 32 mmol/L (22-30); Chloride 101 mmol/L (98-107); Cholesterol 195 mg/dL (0-200); Estimated Glomerular Filt Rate > 60; Glucose 73 mg/dL (65-110); HDL Direct 57 mg/dL; Potassium 4.4 mmol/L (3.4-5.0); Sodium 139 mmol/L (137-145); Triglycerides 101 mg/dL (<150)
[2024-05-13 14:58] LABS: LDL Cholesterol Direct 95 mg/dL
[2024-05-13 18:39] LABS: Vitamin D 25 Hydroxy 36.2 ng/mL
== END 2024-05-13 08:12 | disposition home or self-care (01) ==
LOC: ANHGOSHLAB 08:13
PROVIDERS: PCP Internal Medicine; Visit Provider Nurse Practitioner
DX: E78.49 Other hyperlipidemia (principal); C90.00 Multiple myeloma not having achieved remission; E55.9 Vitamin D deficiency, unspecified
CPT/HCPCS: 36415; 80053; 80061; 82306; 82607; 84443; 85025

== ENCOUNTER 2024-07-23 09:28 | Emergency (ER) | payer MEDICARE, OTHER, SELFPAY ==
[2024-07-23 09:38] VITALS: BP 138/65; PULSE 96; RESP 16; TEMP 37.5; O2SAT 99
--- NOTE | 2024-07-23 09:52 | ED.URI ---
HPI - URI/Sore Throat General Chief Complaint: Upper Respiratory Infection Stated Complaint: Cough/Headcahe Time Seen by Provider: 07/23/24 09:43 Source: patient and RN notes reviewed Mode of arrival: ambulatory Limitations: no limitations History of Present Illness HPI Narrative: Patient presents today with a 2 day history of cough that is worse when lying down, headache, sore throat. She also reports of temperature up to 100 since yesterday. Denies shortness of breath. She is currently pain-free and has been taking Tylenol with some relief. She has been exposed family members with COVID. Related Data Home Medications ?Medication ?Instructions ?Recorded ?Confirmed ?Last Taken ?Type ascorbic acid (vitamin C) 500 mg 1,000 mg PO DAILY 03/21/20 05/12/24 Unknown History capsule aspirin 81 mg tablet,delayed 81 mg PO DAILY 03/21/20 05/12/24 Unknown History release (Adult Low Dose Aspirin) omega-3 fatty acids 1,000 mg 1,000 mg PO DAILY 03/21/20 05/12/24 Unknown History capsule (Fish Oil Concentrate) Allergies Allergy/AdvReac Type Severity Reaction Status Date / Time sulfamethoxazole Allergy Mild itching Verified 07/23/24 09:33 Sulfa (Sulfonamide Allergy Unknown Itching Verified 07/23/24 09:33 Antibiotics) Review of Systems Review of Systems: CONSTITUTIONAL: Denies body aches,chills, or sweats.+ fever EYES: Denies visual changes, redness, or discharge. ENT: Denies rhinorrhea, congestion, or otalgia.+ sore throat CARDIOVASCULAR: Denies chest pain, palpitations, or edema. RESPIRATORY: Denies dyspnea.+ GASTROINTESTINAL: Denies abdominal pain, nausea, vomiting, or diarrhea. GENITOURINARY: Denies dysuria or hematuria. SKIN: Denies rash, itching, or wounds. MUSCULOSKELETAL: Denies back pain, joint pain, or myalgia. NEUROLOGIC: Denies numbness, tingling, or weakness.+ headache PSYCH: Denies depression or anxiety. [facility] Past Medical History Medical History Osteopenia Vitamin D deficiency Smoldering myeloma Cholecystectomy planned 2008 Shingles Chicken pox Mumps History of one miscarriage Osteoporosis Anemia Hyperlipidemia LDL goal <130 Family history of hemochromatosis Monoclonal gammopathy of unknown significance Raynaud's disease with gangrene Surgical History Surgical History History of cholecystectomy Hx of hysterectomy Family History Family History Father Lung cancer Kidney disease Mother Cardiomyopathy Social History Social History Social History: Caffeine-3 cups daily Smoking status: Never smoker Second hand tobacco smoke exposure: No Alcohol intake: current Alcohol use details: occasionally wine Lack of Transportation: No Lack of Food: Never True Current Housing: I Have Housing Concerned About Future Housing: No Difficulty Paying Gas/Electric Bills: No Difficulty Paying for Meds: No Currently Unemployed: No Education: High School Diploma/GED Difficulty w/ Childcare or Family Care: No Comments At time of signature, I have reviewed and agree with nursing past medical, surgical, social and family history unless otherwise noted. Please see nursing chart for further information. There is no relevant family history pertinent to the presenting complaint Exam Narrative: GENERAL: Mildly ill-appearing, well-nourished, and in no acute distress. HEAD: Normocephalic, atraumatic. EYES: EOMI. No redness or drainage. Conjunctivae normal. ENT: Mucous membranes pink and moist. Nares clear. + rhinorrhea. TMs normal bilaterally. Throat very mildly erythematous without edema or exudate. Uvula midline. NECK: Normal AROM. Supple. No lymphadenopathy. CHEST: No respiratory distress. Clear to auscultation. HEART: Regular rate and rhythm. No murmur appreciated. EXTREMITIES: Normal range of motion. No edema. SKIN: Warm, dry, no rash. Capillary refill normal. Normal skin turgor. NEURO: No focal deficits. Alert and oriented x3. Gait steady. PSYCH: Normal affect. No signs of depression or anxiety. Course Course Level of Care: Express Care Visit Vital Signs Vital signs: Vital Signs Temperature 99.5 F 07/23/24 09:38 Pulse Rate 96 07/23/24 09:38 Respiratory Rate 16 07/23/24 09:38 Blood Pressure 138/65 01/24/25 09:38 Pulse Oximetry 99 07/23/24 09:38 Temperature 99.5 F 07/23/24 09:38 Pulse Rate 96 07/23/24 09:38 Respiratory Rate 16 07/23/24 09:38 Blood Pressure 138/65 07/23/24 09:38 Pulse Oximetry 99 07/23/24 09:38 Reviewed MDM - URI/Sore Throat MDM Narrative Medical decision making narrative: Influenza and COVID negative. Symptoms likely viral in etiology. Discussed [id number] medication use and duration of illness. No prescription medications indicated at this time. Anticipatory guidance given. Differential Diagnosis Differential diagnosis: Likely upper respiratory infection, viral infection, influenza, pharyngitis and other (COVID) Lab Data Attestation: I reviewed the patient's lab results. Lab results narrative: Influenza negative, COVID negative Critical Care Time Critical Care Time Critical Care Time: No Discharge Plan Discharge Clinical Impression: Viral infection Patient Disposition: Home, Self-Care Condition: Stable Instructions: Viral Syndrome (ED) Additional Instructions: Your influenza and COVID swabs are negative today. Your Symptoms are likely due to a viral illness, which is not treated with antibiotics. Virus symptoms can last for up to 7-10days. Take Tylenol or ibuprofen for pain or fever. Rest and stay hydrated. Follow up with your PCP in 7 days if symptoms are not improving. Go to the ER immediately if you develop shortness of breath, difficulty swallowing, or any other concerning symptoms. Your blood pressure was elevated above 120/80 today at Urgent Care. This puts you above the threshold for follow up. Please schedule a followup visit with your personal physician as soon as possible, for further evaluation and treatment. Even blood pressure exceeding 120/80 may indicate pre-hypertension. Patient Language: Yi Prescriptions: No Action aspirin [Adult Low Dose Aspirin] 81 mg tablet,delayed release (DR/EC) 81 mg PO DAILY ascorbic acid (vitamin C) 500 mg capsule 1,000 mg PO DAILY omega-3 fatty acids [Fish Oil Concentrate] 1,000 mg capsule 1,000 mg PO DAILY atorvastatin 10 mg tablet 10 mg PO .COMPLEX Qty: 45 3RF Rx Instructions: 10 mg orally --; Follow-up/Referrals: Tuan Patricia DO [Primary Care Provider] - Time of Disposition: 09:55
[2024-07-23 09:58] LABS: EDCOVIDSCREEN Negative (Negative); EDINFLUASCREEN Negative (Negative); EDINFLUBSCREEN Negative (Negative)
== END 2024-07-23 10:00 | disposition home or self-care (01) ==
PROVIDERS: Emergency Provider Nurse Practitioner; PCP Internal Medicine
DX: B34.9 Viral infection, unspecified (principal); E55.9 Vitamin D deficiency, unspecified; M81.0 Age-related osteoporosis without current pathological fracture; E78.5 Hyperlipidemia, unspecified; I73.01 Raynaud's syndrome with gangrene; Z20.822 Contact with and (suspected) exposure to COVID-19
CPT/HCPCS: 87426; 87804; 99213; G0463

== ENCOUNTER 2025-01-06 08:53 | Outpatient (CLI) | payer MEDICARE, OTHER, SELFPAY ==
--- NOTE | ~2025-01-06 | MM_ITS ---
EXAMINATION: MM screening mammo BI HISTORY: Screening mammogram TECHNIQUE: Craniocaudal and mediolateral oblique 3-D tomosynthesis images were obtained and synthetic 2-D images were generated. CAD analysis was submitted and interpreted. COMPARISON: 06/19/2023, 01/19/2022, 12/06/2020 BREAST PARENCHYMAL COMPOSITION:Not Dense. There are scattered areas of fibroglandular density. FINDINGS: No suspicious mass, calcification, or architectural distortion are identified in either maikol ast to suggest malignancy. There has been no suspicious interval change. IMPRESSION: No mammographic evidence of malignancy. Recommend routine screening mammography in one year. BI-RADS Category 1: Negative Reviewed, dictated and finalized at location .
--- OUTSIDE RECORDS SUMMARY | 2025-01-06 09:01 | XMS_ITS | Encounter Summary ---
Author Organization [facility] Address [address] [place] [address] Care Team Providers Care Medical Record Technician Name Role Phone Unavailable Primary Care Provider Unavailabl e Encounter Details Date Type Department Care Team (Late st Contact Info) Description 01/14/2019 Lab Requisition [facility] - Lab Cytogenetics [address] [place], [place] [id number] Justyn Soria MD [address] [place], [place] [id number] Monoclonal gammopathy Social History Tobacco Use Types Packs/Day Years Used Date Smoking Tobacco: Never Assessed Comments Unknown Sex and Gender Information Value Date Recorded Sex Assigned at Not on file Legal Sex Female 4:00 PM CDT Gender Identity Not on file Sexual Orientation Not on file documented as of this encounter Plan of Treatment Not on file documented as of this encounter Procedures Procedure Name Priority Date/Time Associated Diagnosis Comments CYTOGENETICS CANCER PANEL Routine 01/13/2019 10:30 AM CDT Monoclonal gammopathy documented in this encounter Results * CYTOGENETICS CANCER PANEL (01/13/2019 10:30 AM CDT) Indication for Study MGUS 9 2:13 PM CDT [facility] MOLECULAR CYTOGENOMIC LAB Results Cytogenetics Fluorescence In-Situ Hybridization (FISH): Analysis of 100 to 200 interphase cells obtained from a sample enriched with CD-138 plasma cells and hybridized with each of dual labeled (directed onto) CDKN2/CKS1B/ (1p32.3/1q21), dual labeled dual fusion FGFR3/IGH (4p16/14q32), CCND1/IGH (11q13/14q32, dual labeled ATM1/P53 (11q22.3/17p13.1), triple labeled T08L101/LAMP1/CEP12 (13q14/13q34/cent12) , and dual labeled dual fusion MAF/IGH (16q23/IGH), dual labeled IGH break-apart probe* directed onto 14q32 and with specific centromere probes of chromosomes 7 and 9 specific fluorescent labeled probes* showed the following results: nuc rachel(ELXD2Em0,FPZ2Ug3 )[15100],(KCAG5f4,I GHx3)[],(CEP7, CEP9)x2[200], (CCND1,IGH)x3(CCND1 con IGHx2)[/100],(JOSE CARLOS, p53)x2[150],(CEP12,D 71X597,LAMP1)x2[200] (IGHx2)(5'IGH sep 3'IGHx1)[41/100],(IG Hx3,MAFx2)[] Abnormal 9 2:13 PM [facility] MOLECULAR CYTOGENOMIC LAB Interpretation FISH of multiple myeloma panel was positive for CCND1/IGH showing double fusion in 30 to 41% of the cells. FISH results indicate the presence of an abnormal clone having a translocation between 11q13, site of CCND1 and 14q32, site of IGH. In addition, FISH of CKS1B showed three signals in the presence of two signals of CDKN2C in 15% of the cells indicating a clonal evolution. FISH of the remaining probes showed normal signal patterns. FISH results indicate the presence of an abnormal clone having a translocation between t(11;14)(q13;q32) which is associated with multiple myeloma but also it can be found in 90% of mantle cell lymphoma. The prognostic association is standard-risk of progression, median TTP of 5years in patients with smoldering MM and good prognosis, standard-risk MM, median OS7-10 years in patients with multiple myeloma (Am J Hematol. 2016 Delfina ; 91(7): 719-734. Doi:10.1002/ajh.2440 2). The presence of extra gain of CKS1B or 1q in a subclone is associated with disease progression. Clinicopathological correlation is suggested. 9 2:13 PM [facility] MOLECULAR CYTOGENOMIC LAB at 1413 CDT Disclaimer *This test was developed, and its performance characteristics determined by [facility] Molecular Cytogenetics Laboratory as required by CLIA '88 Regulations. It has not been cleared or approved for specific uses by the U.S. Food and Drug Administration. The FDA has determined that such clearance or approval is not necessary. This test is used for clinical purposes. It should not be reported as investigational or for research. --------- Notes for FISH probes: 1- At the pretreatment level, the cutoff values for trisomy is 1%, dual breakapart is 3 to 5%, double fusion is 1%, and monosomy/deletion is 5% for no FFPE specimen and 20% for FFPE specimen. Efficiency of the probe intensity was acceptable overall. 2- At the post-treatment level, any identified percentage found below the pretreatment cutoff values could not be interpreted unequivocally and needs to be correlated with clinicopathological and clinical findings. At the post treatment level, a low percentage could either represent an actual minimal residual disease or an actual nature of normal cell division. 3- Cutoff values are combined for all different probes forming a range of percentages which covers low/high ends of each probe that fluctuate due to environmental conditions. Percentages that are close to the cutoff values have to be interpreted in correlation with clinicopathological and clinical findings. 4- An additional validation is performed by correlating pathology with cytogenetic findings. 9 2:13 PM CDT [facility] MOLECULAR CYTOGENOMIC LAB Client [facility] - #[id number] 9 2:13 PM CDT [facility] MOLECULAR CYTOGENOMIC LAB Embedded Images 9 2:13 PM T [facility] MOLECULAR CYTOGENOMIC LAB Other BONE MARROW SPECIMEN / Unknown 01/13/2019 10:30 AM CDT 01/14/2019 9:47 AM CDT us Justyn Soria MD LAB - PATHOLOGY/CYTOLOGY ORDER JADA Final Result [facility] MOLECULAR CYTOGENOMIC LAB [facility] [place] [address] documented in this encounter Visit Diagnoses Diagnosis Monoclonal gammopathy Monoclonal paraproteinemia documented in this encounter
--- OUTSIDE RECORDS SUMMARY | 2025-01-06 09:01 | XMS_ITS | Encounter Summary ---
Author Organization [facility] Address [address] [place] [address] Care Team Providers Care Protection Analyst Name Role Phone Unavailable Primary Care Provider Unavailabl e Encounter Details Date Type Department Care Team (Late st Contact Info) Description 01/14/2019 Lab Requisition [facility] Care Pathology Lab [address] [place] [address] Keegan Perez MD [address] [address] Social History Tobacco Use Types Packs/Day Years [...] Procedure Name Priority Date/Time Associated Diagnosis Comments BONE MARROW BIOPSY (STL) Routine 01/13/2019 8:00 AM CDT documented in this encounter Results * BONE MARROW BIOPSY (STL) (01/13/2019 8:00 AM CDT) Case Report Bone Marrow Patholog y Report Case: [id number] Authorizing Provider: Keegan Perez MD Collected: 01/13/2019 08:00 AM Pathologist: Silvana Mcbride MD Received: 01/14/2019 03:59 PM Specimens: A) - Bone Marrow Core, BM19-20 B) - Bone Marrow Clot, BM19-20 C) - Blood Peripheral, BM19-20 D) - Bone Marrow Aspirate, BM19-20 01/29/2019 4:10 PM CDT [facility] PATH[facility] Final Diagnosis Bone marrow, aspirate, clot section, and core biopsy: - Variably cellular marrow with maturing trilineage hematopoiesis and approximately 20% involvement by a plasma cell dyscrasia. - See microscopic description. Peripheral blood smear: - Unremarkable. - See microscopic description. 01/29/2019 4:10 PM [facility] PATHOLOGY LAB at 1727 CDT AP Comment In summary, the bone marrow shows variable cellularity with a predominance of maturing trilineage hematopoiesis. There is approximately 20% involvement by a plasma cell dyscrasia, as estimated by CD138 immunohistochemistry. There is no evidence of lymphoma or high grade myeloid neoplasm in this sample of marrow. Correlation with additional clinical and laboratory data is required for further classification of this process. KR 01/29/2019 4:10 PM [facility] PATHOLOGY LAB Peripheral Smear Description CBC Data: WBC - 5.3, Hgb - 13.4, MCV - 89.6, MCHC - 33.3, and Platelet - 282. Manual Differential Count (100 cells): 49% neutrophils, 41% lymphocytes, 8% monocytes, and 2% eosinophils. Leukocyte number: normal. Granulocyte morphology: normal. Lymphocyte morphology: normal. Erythrocyte number: normal. Erythrocyte morphology: normochromic/normocyti c. Anisopoikilocytosis: not signifcant. Polychromasia: not significant. Platelet number: normal. Platelet morphology: normal. 01/29/2019 4:10 PM [facility] PATHOLOGY LAB Bone Marrow Aspirate Differential count (200 cells): 0.5% blasts, 53.5% maturing myeloid precursors, 16.5% erythroid progenitors, 1.5% monocytes, 1% eosinophils, 22% lymphocytes, and 5% plasma cells. Spicules: Rare, small. Trilineage Hematopoiesis: present. Myeloid:Erythroid ratio: 3.4:1. Myeloid Maturation: normal. Erythroid Maturation: normal. Megakaryocyte morphology: normal nuclear lobation. Storage iron (by special stain): decreased. No spicules present for assessment. Sideroblastic iron (by special stain): decreased. 01/29/2019 4:10 PM [facility] PATHOLOGY LAB Bone Marrow Core Biopsy and Clot Section Description Specimen quality: The decalcified bone marrow core biopsy is adequate for evaluation. Cellularity: Variable, overall estimated at 20%. Trilineage Hematopoiesis: present. Myeloid to Erythroid ratio: normal. Myeloid maturation and localization: normal. Erythroid maturation and localization: normal. Megakaryocyte number: normal. Megakaryocyte distribution: normal. Lymphoid aggregates: Present. A small interstitial lymphoid aggregate is identified. Blood vessels: normal. Other: Plasma cells are variably present throughout the sample. Clot section marrow particles: present. Clot section morphology: similar to core biopsy. Clot section iron (by special stain): Adequate. Control is appropriately reactive. To further evaluate the plasma cell burden in the marrow, as well as assess the lymphoid aggregate, immunohistochemistry is performed on the bone marrow core biopsy in the [facility] Department of Pathology. Controls are appropriately reactive. CD138 highlights increased plasma cells, estimated to comprise 20% of the marrow cellularity. These cells are arranged singly and in small clusters. CD3 and CD20 highlight interstitial T-cells and B-cells, respectively. The lymphoid aggregate is no longer in the section on the immunohistochemical stains. 01/29/2019 4:10 PM [facility] PATHOLOGY LAB Flow Cytometry Summary Concurrent flow cytometry ([id number]) shows bone marrow involvement by a plasma cell dyscrasia with no evidence of non-Hodgkin lymphoma or high grade myeloid neoplasm. 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 01/29/2019 4:10 PM [facility] PATHOLOGY LAB Materials Received Received are 15 slides and 2 blocks labeled as [id number] along with the outside pathology report. [place] [address]. All materials are returned to the referring institution, along with a copy of our final report. 01/29/2019 4:10 PM [facility] PATHOLOGY LAB Disclaimer The performance characteristics of all immunohistochemical and indirect immunofluorescence stains (if any) cited in this report were determined by the Histopathology Laboratory of [facility]. Some of these tests were developed by our own laboratory and have not been cleared or approved by the US Food and Drug Administration. The FDA does not require this test to go through premarket FDA review. These tests are used for clinical purposes. They should not be regarded as investigational or for research. This laboratory is certified under the Clinical Laboratory Improvement Amendments (CLIA) as qualified to perform high complexity clinical laboratory testing. This case has been personally reviewed and interpreted by the attending (teaching) pathologist. The [facility], [address] [place] [address]. 01/29/2019 4:10 PM CDT [facility] PATHOLOGY LAB Addendum 1 This addendum is issued to report the results of cytogenetics and FISH performed at [facility], [address] [place] [address], [address], [place] [id number]. A normal female karyotype (46,XX[20]) is reported ([id number]). FISH was performed for the myeloma panel. A gain of 1q21 was detected in 23% of cells. A CCND1/IGH translocation is reported in 57% of nuclei ([id number]). Please see the reference lab report for additional details. KR 01/29/2019 4:10 PM CDT [facility] PATHOLOGY LAB Addendum electronically signed by Silvana Mcbride MD on 01/29/2019 at 1610 CDT Embedded Images 01/29/2019 4:10 PM CDT [facility] PATHOLOGY LAB Pathology/Cytology SPECIMEN FROM BONE MARROW OBTAINED BY ASPIRATION / Unknown 01/13/2019 8:00 AM CDT 01/14/2019 3:59 PM CDT Miscellaneous samples (specimen) BONE MARROW CLOT SPECIMEN / Unknown 01/13/2019 8:00 AM CDT 01/14/2019 3:59 PM CDT Miscellaneous samples (specimen) PERIPHERAL BLOOD / Unknown 01/13/2019 8:00 AM CDT 01/14/2019 3:59 PM CDT Miscellaneous samples (specimen) SPECIMEN FROM BONE MARROW OBTAINED BY ASPIRATION / Unknown 01/13/2019 8:00 AM CDT 01/14/2019 3:59 PM CDT us Keegan Perez MD LAB - PATHOLOGY/CYTOLOGY ORDER JADA Edited Result - Final [facility] PATHOLOGY LAB [address] [place] [address], [facility] [phone] documented in this encounter Visit Diagnoses Not on filedocumented in this encounter
--- OUTSIDE RECORDS SUMMARY | 2025-01-06 09:01 | XMS_ITS | Encounter Summary ---
Author Organization [facility] Address [address] [facility] [place] [address] Care Team Providers Care Grant Specialist Name Role Phone Unavailable Primary Care Provider Unavailabl e Encounter Details Date Type Department Care Team (Late st Contact Info) Description 01/13/2019 Lab Requisition [facility] Pathology Lab [address] [place] [address] Keegan Perez MD [id number] [id number] Monoclonal gammopathy Social History Tobacco Use Types [...] Procedure Name Priority Date/Time Associated Diagnosis Comments FLOW CYTOMETRY BONE MARROW Routine 01/13/2019 Monoclonal gammopathy documented in this encounter Results * FLOW CYTOMETRY BONE MARROW (01/13/2019) Case Report Flow Cytometry Case: [id number] Authorizing Provider: Keegan Perez MD Collected: 01/13/2019 Pathologist: Silvana Mcbride MD Received: 01/13/2019 04:02 PM Specimen: Bone Marrow 01/14/2019 11:03 AM [facility] Final Diagnosis Bone marrow, flow cytometric immunophenotypic analysis: - Plasma cell dyscrasia. - No evidence of non-Hodgkin lymphoma or high grade myeloid neoplasm. - See interpretation. 01/14/2019 11:03 AM CDT [facility] at [address] [facility] Flow Cytometry Interpretation The bone marrow aspirate specimen has a viability of 100%. The lymphocyte gate shows mild relative expansion. Within this region, there is no monoclonal B-cell population identified (kappa:lambda ratio is 1.8:1). The majority of cells are T-cells. Within the dim CD45 region, there is no increase in blasts (0.3% of all events). There is a small monoclonal plasma cell population identified that expresses CD38, CD138, dim CD45, and cytoplasmic lambda light chains. These cells lack significant co-expression of CD19, CD20, CD56, CD10, or CD117. This population comprises 0.3% of all events analyzed. A bone marrow aspirate smear prepared from the flow cytometry specimen is reviewed for cloth tester quality purposes. In summary, the bone marrow specimen shows evidence of involvement by a plasma cell dyscrasia. There is no evidence of a non-Hodgkin lymphoma or high grade myeloid neoplasm in the specimen. Plasma cells are typically underestimated in flow cytometric studies. Correlation with additional clinical information and the concurrent bone marrow biopsy specimen is required for further classification of this process. KR 01/14/2019 11:03 AM [facility] Flow Cytometry Results Differential Result Comment Flow Cell Count /uL 8400 Total Viability % 100.0 Lymphocytes % 44 Dim CD45 Region % 2 Monocytes % 2 Granulocytes % 50 01/14/2019 11:03 AM [facility] Reason for test Monoclonal gammopathy 273.1 01/14/2019 11:03 AM [facility] Client Specimen ID # [id number] 01/14/2019 11:03 AM [facility] Number of markers 14 were performed. A Flow CD10 A Flow CD13 A Flow CD20 A Flow CD117 A FLOW CD138 A Flow CD5 A Flow CD19 A Flow CD33 A Flow CD34 A Flow CD45 A Flow CD38 A Flow CD56 A [place]+CD19+ A Lambda+CD19+ 01/14/2019 11:03 AM [facility] Disclaimer Test performed at [facility], [address] [place], [place], [address]. *The established laboratory minimum viability is 70%. Values below the minimum may result in the failure to find an abnormal population of cells. This test was developed and its performance characteristics determined by the Flow Cytometry Laboratory. It has not been cleared by the [place] Food and Drug Administration (FDA). The FDA has determined that such clearance or approval is not necessary. This test is used for clinical purposes. It should not be regarded as investigational or for research. This laboratory is regulated under the Clinical Laboratory Improvement Amendments of 1998 (CLIA) as a qualified to perform high complexity clinical testing. 01/14/2019 11:03 AM CDT [facility] Embedded Images 11:03 AM CDT [facility] Pathology/Cytolog y BONE MARROW SPECIMEN / Unknown 01/13/2019 01/13/2019 4:02 PM CDT us Keegan Perez MD LAB - PATHOLOGY/CYTOLOGY ORDER JADA Final Result [facility] [address] [place], [place] [id number] [place] [address] documented in this encounter Visit Diagnoses Diagnosis Monoclonal gammopathy Monoclonal paraproteinemia documented in this encounter
--- OUTSIDE RECORDS SUMMARY | 2025-01-06 09:01 | XMS_ITS | Clinical Summary ---
Author Organization [facility] Address [address] [facility] [place] [address] Phone Care Team Providers Care Solution Mixer Name Role Phone Tuan Patricia DO Primary Care Provider Tuan Patricia DO Unavailable [phone] Annemarie Altamirano FIGURE CLERK Unavailable Allergies Active Allergy Reactions Criticality Noted Date Comments Sulfa (Sulfonamide Antibiotics) Itching,Rash Medium Medications aspirin 81 mg enteric coated tablet 06/10/2017Aspirin, po solid 81 mg Tablet, delayed release (enteric coated)POdailyCurrent Medication 017 Active calcium carbonate-vit reich D3 600 mg calcium- 200 unit capsule 06/10/2017Calcium + d, po solid 600 mg-100 Capsule(s)POdailyCurrent Medication 017 Active omega 7-qzz-apo-fis h oil 100-160-1,000 mg capsule 06/10/2017Fish oil concentrate, po solid 1000 mg CapsulePOdailyCurrent Medication 017 Active ascorbic acid (VITAMIN C) 1,000 mg tablet 06/10/2017Vitamin c 1000 mg Effervescent powder in packetdailyCurrent Medication 017 Active atorvastatin (LIPITOR) 10 mg tablet 018 Active Active Problems Problem Noted Date Diagnosed Date 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 Encounters Date Type Department Care Team Description 01/03/2025 11:00 AM CDT Office Visit [facility] [address] [place] [address] [address] [place] [phone] Kristina Bobo MD MGUS (monoclonal gammopathy of unknown significance) (Primary Dx); Monoclonal gammopathy of unknown significance; Smoldering myeloma 12/27/2024 9:00 AM CDT Lab [facility] at [address] [address] Monoclonal gammopathy of unknown significance; Smoldering myeloma; MGUS (monoclonal gammopathy of unknown significance) 12/27/2024 Orders Only [facility] [address] [place] [phone] Arcelia Argueta RN MGUS (monoclonal gammopathy of unknown significance) (Primary Dx) 10/21/2024 Telephone [facility] [address] [place] [phone] Claudia Patel from Last 3 Months Immunizations Immunization Administration Dates Next Due Influenza, Trivalent, High D ose, Split, Preservative Free, Intramuscular 04/09/2019 Influenza, Unspecified 04/16/2018,2016,06/10/2016,06/12,05/16/2014 Moderna SARS-CoV-2 Monovalen t Vaccination (12+ YRS) 09/15/2020,08/18/2020 Pneumococcal Polysaccharide PPV23 03/31/2020 Pneumococcal, Unspecified 06/16/2009 ZOSTER LIVE 06/10/2017 Surgical History Surgery Date Site/Laterality Comments CHOLECYSTECTOMY COLONOSCOPY Medical History Medical History Date Comments Hypercholesteremia MGUS (monoclonal gammopathy of unknown significa nce) Family History Medical History Relation Name Comments Lung cancer Father Lung cancer Maternal Grandfather Relation Name Status Comments Father (Age 80) 68 when di agnosed Maternal Grandfather Social History Tobacco Use Types Packs/Day Years Used Date Smoking Tobacco: Never Smokeless Tobacco: Never Alcohol Use Standard Drinks/Week Comments Yes 0 (1 standard drink = 0.6 oz pur e alcohol) rare AUDIT-C Answer Date Recorded Q1: How often do you have a drink containing alc ohol? Monthly or less 01/09/2023 Q2: How many drinks containi ng alcohol do you have on a typical day when you are drinking? 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 Gender Identity Female 10/01/2018 3:37 PM CDT Sexual Orientation Choose not to disclose 2018 8:08 AM CDT Obstetrics History Last Filed Vital Signs Vital Sign Reading Time Taken Comments Blood Pressure 135/74 01/03/2025 10:54 AM CDT Pulse 71 01/03/2025 10:54 AM CDT Temperature 36.4 C (97.5 F) 01/03/2025 10:54 AM CDT Respiratory Rate 16 01/03/2025 10:5 4 AM CDT Oxygen Saturation 97% 01/03/2025 10: 54 AM CDT Inhaled Oxygen Concentration - - Weight 63.8 kg (140 lb 10.5 oz) 025 10:54 AM CDT Height 169 cm (5' 6.54) 01/03/2025 10: 54 AM CDT Body Mass Index 22.34 01/03/2025 10:54 AM CDT Plan of Treatment Health Maintenance Due Date Last Done Comments Breast Cancer Screening-Mammogram 1950 Colon Cancer Screening-Colonoscopy 1950 Depression Screening 1950 Fall Risk Assessment 1950 Hepatitis C Screening 1950 Osteoporosis Screening-Bone Density Scan 1950 DTaP/Tdap/Td Vaccine (1 - Tdap) 01/19/1963 Hepatitis B Screening 01/19/1970 Well Visit 65+ 01/19/2017 Zoster Vaccine (1 of 2) 08/05/2017 06/10/2017 Covid-19 Vaccine (3 - Modern a risk series) 10/13/2020 09/15/2020, 08/18/2020 Pneumococcal vaccine 65+ (2 of 2 - PCV) 03/31/2021 03/31/2020, 06/16/2009 Influenza Vaccine (#1) 2025 9, 04/16/2018, 06/10/2017, Additional history exists Procedures Procedure Name Priority Date/Time Associated Diagnosis Comments EGFR Routine 12/27/2024 9:01 AM CDT MGUS (monoclonal gammopathy of unknown significance) DIFFERENTIAL AUTO Routine 12/27/2024 9:0 1 AM CDT MGUS (monoclonal gammopathy of unknown significance) IGA Routine 12/27/2024 9:01 AM CDT MGUS (monoclonal gammopathy of unknown significance) IGG Routine 12/27/2024 9:01 AM CDT MGUS (monoclonal gammopathy of unknown significance) IGM Routine 12/27/2024 9:01 AM CDT MGUS (monoclonal gammopathy of unknown significance) BETA 2 MICROGLOBULIN SERUM Routine 12/27/2024 9:01 AM CDT MGUS (monoclonal gammopathy of unknown significance) CBC WITH AUTO DIFFERENTIAL Routine 12/27/2024 9:01 AM CDT MGUS (monoclonal gammopathy of unknown significance) COMPREHENSIVE METABOLIC PANEL Routine 12/27/2024 9:01 AM CDT MGUS (monoclonal gammopathy of unknown significance) IMMUNOTYPING Routine 12/27/2024 9:01 AM CDT MGUS (monoclonal gammopathy of unknown significance) IMMUNOGLOBULIN FREE LIGHT CHAINS Routine 12/27/2024 9:01 AM CDT MGUS (monoclonal gammopathy of unknown significance) LACTATE DEHYDROGENASE Routine 12/27/2024 9:01 AM CDT MGUS (monoclonal gammopathy of unknown significance) PROTEIN ELECTROPHORESIS, WITH REFLEX, SERUM Routine 12/27/2024 9:01 AM CDT MGUS (monoclonal gammopathy of unknown significance) from Last 3 Months Results * Immunotyping, serum with interpretation (12/27/2024 9:01 AM CDT) Immunosubtraction Please see comment Comment: IGG LAMBDA PARAPROTEIN Reviewed and signed by Abel Jalloh MD, PhD 12/28/2024 Testing performed by: [facility], [address] [facility] [place]., [address] Blood 12/27/2024 9:01 AM CDT 12/27/2024 3:24 PM CDT us Kristina Bobo MD LAB BLOOD ORDERABLES Final Result [facility] [address] [facility] Department [place] [address] * eGFR (12/27/2024 9:01 AM CDT) eGFR 78 >=60 mL/min/1. 73 m2 Comment: Interpretive Data Reference Interval Normal >/= 90 mL/min/1.73m2 Mildly decreased* 60 - 89 mL/min/1.73m2 Mildly to moderately decreased 45 - 59 mL/min/1.73m2 Moderately to severely decreased 30 - 44 mL/min/1.73m2 Severely decreased 15 - 29 mL/min/1.73m2 Kidney Failure < 15 mL/min/1.73m2 *Relative to young adult level Estimated glomerular filtration rate is determined by the 2020 CKD-EPI equation recommended by the National Kidney Foundation (A Unifying Approach to GFR Estimation: Recommendations of the NKF-ASK Task Force on Reassessing the Inclusion of Race in Diagnosing Kidney Disease, JASN 2020). The CKD-EPI equation should not be used for patients with unstable renal function and has not been validated in children and those over 70. Current interpretive data was last reviewed 2021. Testing performed by: [facility], [address] [place] [address]., [address] Blood 12/27/2024 9:01 AM CDT 12/27/2024 9:01 AM CDT us Kristina Bobo MD LAB BLOOD ORDERABLES Final Result [facility] [address] [facility] Department of Laboratories [place], [place] [id number] * Differential, auto (12/27/2024 9:01 AM CDT) Neutrophil abs 2.71 1.50 - 6.50 K/cumm Comment:Testing performed by : [address] [address] Imm gran abs 0.01 0.00 - 0.10 K/cumm CHARLENE Comment:Testing performed by : [address] [address] Lymphocyte abs 1.80 0.80 - 3.30 K/cumm CHARLENE Comment:Testing performed by : [address] [address] Monocyte abs 0.43 0.20 - 0.80 K/cumm CHARLENE Comment:Testing performed by : [address] [address] Eosinophil abs 0.13 0.00 - 0.50 K/cumm CHARLENE Comment:Testing performed by : [address] [address] Basophil abs 0.06 0.00 - 0.10 K/cumm CHARLENE Comment:Testing performed by : [address] [address] Neutrophil pct 52.7 % CHARLENE Comment: Interpretive Data Percent cell count reference ranges are not reported, since discordance with absolute values may lead to misinterpretation of CBC data. Current Interpretive Data was last revised on 2017. Testing performed by: [address] [address] Imm gran pct 0.2 % CHAR[facility]E Comment: Interpretive Data Percent cell count reference ranges are not reported, since discordance with absolute values may lead to misinterpretation of CBC data. Current Interpretive Data was last revised on 2017. Testing performed by: [address] [address] Lymphocyte pct 35.0 % [facility] Comment: Interpretive Data Percent cell count reference ranges are not reported, since discordance with absolute values may lead to misinterpretation of CBC data. Current Interpretive Data was last revised on 2017. Testing performed by: [address] [address] Monocyte pct 8.4 % [facility] Comment: Interpretive Data Percent cell count reference ranges are not reported, since discordance with absolute values may lead to misinterpretation of CBC data. Current Interpretive Data was last revised on 2017. Testing performed by: [address] [address] Eosinophil pct 2.5 % [facility] Comment: Interpretive Data Percent cell count reference ranges are not reported, since discordance with absolute values may lead to misinterpretation of CBC data. Current Interpretive Data was last revised on 2017. Testing performed by: [address] [address] Basophil pct 1.2 % [facility] Comment: Interpretive Data Percent cell count reference ranges are not reported, since discordance with absolute values may lead to misinterpretation of CBC data. Current Interpretive Data was last revised on 2017. Testing performed by: [address] [address] Blood 12/27/2024 9:01 AM CDT 12/27/2024 9:02 AM CDT Kristina Bobo MD LAB BLOOD ORDERABLES Final Result [facility] [address] [facility] Department of Laboratories [place], [place] [phone] * (ABNORMAL) Immunoglobulin free light chains (12/27/2024 9:01 AM CDT) Pathologist [facility] Fronton/Lambda ratio [facility] 0.03(L) 0.26 - 1.65 Comment: Interpretive Data The Binding Site FreeLite assay procedure was used. Results from different manufacturers or methods may not be comparable. Serial testing should be performed using the same methods and instrumentation. Current Interpretive Data was last revised on 2023. Testing performed by: [facility], [address] [place]., [address] Fronton free light chain [facility] 1.34 0.33 - 1.94 mg/dL [facility]E VELEZ Comment: Interpretive Data The Binding Site FreeLite assay procedure was used. Results from different manufacturers or methods may not be comparable. Serial testing should be performed using the same methods and instrumentation. Current Interpretive Data was last revised on 2023. Testing performed by: [facility], [address] [place]., [address] Lambda free light chain [facility] 48.98(H) 0.57 - 2.63 mg/dL [facility]E VELEZ Comment: Interpretive Data The Binding Site FreeLite assay procedure was used. Results from different manufacturers or methods may not be comparable. Serial testing should be performed using the same methods and instrumentation. Current Interpretive Data was last revised on 2023. Testing performed by: [facility], [address] [place]., [address] Blood 12/27/2024 9:01 AM CDT 12/27/2024 3:24 PM CDT us Kristina Bobo MD LAB BLOOD ORDERABLES Final Result [facility] [address] [facility] Department of Laboratories [place], [place] [phone] * CBC with auto differential (12/27/2024 9:01 AM CDT) WBC 5.14 3.80 - 9.90 K/cumm Comment:Testing performed by : [address] [address] Hgb 12.6 11.9 - 15.5 g/dL [facility]E VELEZ Comment:Testing performed by : [address] [address] Hct 38.1 35.6 - 45.5 % [facility]E VELEZ Comment:Testing performed by : [address] [address] Plt 271 150 - 400 K/cumm CHARLENE Comment:Testing performed by : [address] [address] MPV 9.2 9.1 - 12.3 fL CHAR[facility]E Comment:Testing performed by : [address] [address] RBC 4.31 3.90 - 5.20 M/cumm CHARLENE Comment:Testing performed by : [address] [address] MCV 88.4 81.3 - 96.4 fL CHAR[facility]E Comment:Testing performed by : [address] [address] MCH 29.2 27.1 - 33.3 pg CHAR[facility]E Comment:Testing performed by : [address] [address] MCHC 33.1 32.3 - 35.7 g/dL CHARLENE Comment:Testing performed by : [address], [address] RDW CV 12.3 11.1 - 14.9 % CHARLENE Comment:Testing performed by : [address] [address] RDW SD 40.7 35.7 - 48.1 fL [facility]E Comment:Testing performed by : [address] [address] NRBC abs 0.00 0.00 - 0.01 K/cumm CHARLENE Comment:Testing performed by : [address] [address] ANC Prelim 2.71 1.50 - 6.50 K/cumm CHARLENE Comment: Interpretive Data The rapid ANC is a preliminary automated count and may vary from the final ANC (Neut Abs) reported in the WBC differential that follows. Current interpretive data was last revised 2024. Testing performed by: [address] [address] Blood 12/27/2024 9:01 AM CDT 12/27/2024 9:02 AM CDT Kristina Bobo MD LAB BLOOD ORDERABLES Final Result [facility] [address] [facility] Department [place] [address] * (ABNORMAL) Protein electrophoresis with reflex, serum with interpretation (12/27/2024 9:01 AM CDT) Protein, sr 7.1 6.2 - 8.2 g/dL Comment:Testing performed by : [facility], [address] [place] [address], [address] Albumin 3.9 3.2 - 5.0 g/dL CHARLENE Comment:Testing performed by : [facility], [address] [place] [address], [address] Alpha-1 globulin 0.3 0.2 - 0.4 g/dL CHARLENE Comment:Testing performed by : [facility], [address] [place] [address], [address] Alpha-2 globulin 0.8 0.5 - 1.0 g/dL CHARLENE Comment:Testing performed by : [facility], [address] [place] [address]., [address] Beta-1 globulin 0.4 0.3 - 0.6 g/dL CHARLENE Comment:Testing performed by : [facility], [address] [place] [address], [address] Beta-2 globulin 0.3 0.2 - 0.6 g/dL CHARLENE Comment:Testing performed by : [facility], [address] [place] [address], [address] Gamma globulin 1.5 0.5 - 1.7 g/dL CHARLENE Comment:Testing performed by : [facility], [address] [place] [address], [address] Rstr Pk Gamma 1.2(H) 0.0 - 0.0 g/dL CHARLENE Comment:Testing performed by : [facility], [address] [facility] [place]., [address] SPEP interp Please see comment [facility] Comment: Abnormal restricted peak in gamma region Electrophoretic pattern appears similar to previous sample 12/24/2023 See immunotyping for further information Reviewed and signed by Abel Jalloh MD, PhD 12/28/2024 Testing performed by: [facility], [address] [place]., [address] Blood 12/27/2024 9:01 AM CDT 12/27/2024 3:24 PM CDT Kristina Bobo MD LAB BLOOD ORDERABLES Final Result Performing Organization Address [facility] Co de Phone Number JEANETTE[address] [place] [address] * Lactate dehydrogenase (LD) (12/27/2024 9:01 AM CDT) Lactate dehydrogenase (LDH) 146 100 - 250 Units/L Comment:Testing performed by : [facility], [address] [place] [address], [address] Blood 12/27/2024 9:01 AM CDT 12/27/2024 9:01 AM CDT Kristina Bobo MD LAB BLOOD ORDERABLES Final Result Performing Organization Address [facility] de Phone Number [address] [place] [address] * (ABNORMAL) IgA (12/27/2024 9:01 AM CDT) Immunoglobulin A 62(L) 70 - 400 mg/dL Blood 12/27/2024 9:01 AM CDT 12/27/2024 10:24 AM CDT Kristina Bobo MD LAB BLOOD ORDERABLES Final Result Performing Organization Address City/[facility] Co de Phone Number [address] [address] * IgM (12/27/2024 9:01 AM CDT) Immunoglobulin M 56 40 - 230 mg/dL Blood 12/27/2024 9:01 AM CDT 12/27/2024 10:24 AM CDT Kristina Bobo MD LAB BLOOD ORDERABLES Final Result Performing Organization Address City/[facility]/ZIP Co de Phone Number [address] [address] * IgG (12/27/2024 9:01 AM CDT) Pathologist [facility] Immunoglobulin G 1,584 700 - 1,600 mg/dL Blood 12/27/2024 9:01 AM CDT 12/27/2024 10:24 AM CDT Kristina Bobo MD LAB BLOOD ORDERABLES Final Result Performing Organization Address [facility] Co de Phone Number [address] [address] * Beta 2 microglobulin, serum (12/27/2024 9:01 AM CDT) Pathologist [facility] Beta 2 Microglobulin, Serum 2.00 1.00 - 2.50 mg/L Comment: Interpretive Data The Meghan Beta-2 microglobulin assay procedure was used. Results from different manufacturers or methods may not be comparable. Serial testing should be performed using the same method. Testing performed by: [facility], [address] [place] [address]., [address] Blood 12/27/2024 9:01 AM CDT 12/27/2024 9:41 AM CDT us Kristina Bobo MD LAB BLOOD ORDERABLES Final Result Performing Organization Address City/[facility]/ZIP Co de Phone Number [address] [address] * Comprehensive metabolic panel (12/27/2024 9:01 AM CDT) Sodium 141 135 - 145 mmol/L Comment:Testing performed by : [address] [address] Potassium, pl 4.5 3.3 - 4.9 mmol/L CHAR[facility]E Comment:Testing performed by : [address] [address] Chloride 104 97 - 110 mmol/L CHAR[facility]E Comment:Testing performed by : [address], [place]., [address] CO2 27 22 - 32 mmol/L CHAR[facility]E Comment:Testing performed by : [address] [address] Anion gap 10 2 - 15 mmol/L CHAR[facility]E Comment:Testing performed by : [address] [address] BUN 13 6 - 25 mg/dL [facility]E Comment:Testing performed by : [address] [address] Creatinine 0.80 0.60 - 1.10 mg/dL [facility]E Comment:Testing performed by : [address] [address] Glucose 89 70 - 199 mg/dL [facility]E Comment: Interpretive Data Fasting glucose >/= 126 mg/dl is diagnostic for diabetes. Fasting is defined as no caloric intake for at least 8 hours. Fasting glucose between 100 mg/dl to 125 mg/dl is diagnostic of prediabetes. In a patient with classic symptoms of hyperglycemia or hyperglycemic crisis, a random glucose >/= 200 mg/dl is diagnostic for diabetes. In the absence of unequivocal hyperglycemia, results should be confirmed by repeat testing. The classification and Diagnosis of Diabetes Diabetes Care 202; 46: S19-S40. Current interpretive data was last revised 2022. Testing performed by: [address] [address] Calcium 10.1 8.5 - 10.3 mg/dL CHAR[facility]E Comment:Testing performed by : [address] [address] Bilirubin, total 0.4 0.1 - 1.2 mg/dL [facility]E Comment:Testing performed by : [address] [address] Protein, pl 7.4 6.5 - 8.5 g/dL [facility]E Comment:Testing performed by : [address] [address] Albumin 4.1 3.5 - 5.0 g/dL [facility]E Comment:Testing performed by : [address] [address] Alk phos 82 40 - 130 Units/L CHAR[facility]E Comment:Testing performed by : [address] [address] ALT 10 7 - 45 Units/L CHAR[facility]E Comment:Testing performed by : [address] [address] AST 16 10 - 45 Units/L [facility]E Comment:Testing performed by : [address] [address] Blood 12/27/2024 9:01 AM CDT 12/27/2024 9:01 AM CDT Kristina Bobo MD LAB BLOOD ORDERABLES Final Result Performing Organization Address City/State/ZIP Co ga Phone Number [facility] [address] [facility] Department [place] [address] from Last 3 Months Insurance MEDICARE FOR LIFE MEDICARE FOR LIFE Care Teams Solution Mixer Relationship Specialty Start Date End Date Tuan Patricia DO PCP - General Internal Medicine 06/16/18 Tuan Patricia DO 06/16/18 Annemarie Altamirano NP [address] [place] [id number] Nurse Practitioner Medical Oncology 01/01/23
--- OUTSIDE RECORDS SUMMARY | 2025-01-06 09:02 | XMS_ITS | Clinical Summary ---
Author Organization [facility] Address [address] [place] [address] Care Team Providers Care Supervisor [place] Name Role Phone Unavailable Primary Care Provider Unavailabl e Source Comments [facility] [employer],non-owned Affiliates and Associated Physician Practices is amultiple site organization consisting of ambulatory clinics and hospital sitesin [place] and [place]. This disclosure is being madepursuant to the Care Everywhere program and may not contain all information available regarding this patient. Last updated 18.[facility] [employer] Social History Tobacco Use Types Packs/Day Years Used Date Smoking Tobacco: Never Assessed Comments Unknown Sex and Gender Information Value Date Recorded Sex Assigned at Not on file Legal Sex Female 4:00 PM CDT Gender Identity Not on file Sexual Orientation Not on file Plan of Treatment Health Maintenance Due Date Last Done Comments BONE DENSITY TESTING 1950 COLOGUARD (AGES 45-75) - COL ON CA SCREENING 1950 COLON MONITORING 1952 COLONOSCOPY - COLON CA SCREENING 1952 CT COLONOGRAPHY - COLON CA SCREENING 1950 Colorectal Cancer Screening 1952 FIT - COLON CA SCREENING 1952 FLEX SIG - COLON CA SCREENING 1950 LIPID TESTING 1950 MAMMOGRAM 1952 HEPATITIS C SCREENING 01/15/1970 DTAP/TDAP/TD VACCINES (1 - Tdap) 01/19/1971 PNEUMOCOCCAL VACCINE 50+ (1 of 1 - PCV) 01/19/2002 ZOSTER VACCINE (1 of 2) 01/19/2002 COVID-19 VACCINE ( - 2023-2 5 season) 2024 DEPRESSION SCREENING 06/30/2024 INFLUENZA VACCINE (#1) 2025 Respiratory Syncytial Virus (RSV) Vaccine Pt: or over 60 yrs (1 - 1-dose 75+ series) 01/19/2027 HEPATITIS B VACCINE Aged Out No longe r eligible based on patient's age to complete this topic HIB VACCINE Aged Out No longer eligi ble based on patient's age to complete this topic HPV VACCINE Aged Out No longer eligi ble based on patient's age to complete this topic MENINGOCOCCAL (Group B) VACC INE SHARED DECISION-MAKING Aged Out No longer eligibl e based on patient's age to complete this topic MENINGOCOCCAL GROUPS A/C/Y/W VACCINE Aged Out No longer eligible b ased on patient's age to complete this topic Insurance MEDICARE
--- OUTSIDE RECORDS SUMMARY | 2025-01-06 09:02 | XMS_ITS | Referral Summary ---
Author Organization [facility] Address [address] [place] [address] Phone Care Team Providers Care Pie Filling Mixer Name Role Phone Tuan Patricia DO Primary Care Provider + [phone] Tuan Patricia DO Unavailable [phone] Annemarie Altamirano KETTLEMAN Unavailable + [phone] Encounters Date Type Department Care Team Description 01/03/2025 11:00 AM CDT Office Visit [facility] Trans[facility] [address] [place] [address] [address] [place] [address] Kristina Bobo MD MGUS (monoclonal gammopathy of unknown significance) (Primary Dx); Monoclonal gammopathy of unknown significance; Smoldering myeloma 12/27/2024 Orders Only [facility] On[facility] [address] [place] [address] [address] [place] [address] Arcelia Argueta RN MGUS (monoclonal gammopathy of unknown significance) (Primary Dx) 12/27/2024 9:00 AM CDT Lab [facility] [address] [place] [address] Monoclonal gammopathy of unknown significance; Smoldering myeloma; MGUS (monoclonal gammopathy of unknown significance) 10/21/2024 Telephone [facility] [address] [place] [address] [address] [place] [address] Claudia Patel from Last 3 Months Allergies Active Allergy Reactions Criticality Noted Date Comments Sulfa (Sulfonamide Antibiotics) Itching,Rash Medium Medications aspirin 81 mg enteric coated tablet 06/10/2017Aspirin, po solid 81 mg Tablet, delayed release (enteric coated)POdailyCurrent Medication Active calcium carbonate-vit reich D3 600 mg calcium- 200 unit capsule 06/10/2017Calcium + d, po solid 600 mg-100 Capsule(s)POdailyCurrent Medication Active omega 8-rnz-pek-fis h oil 100-160-1,000 mg capsule 06/10/2017Fish oil concentrate, po solid 1000 mg CapsulePOdailyCurrent Medication Active ascorbic acid (VITAMIN C) 1,000 mg tablet 06/10/2017Vitamin c 1000 mg Effervescent powder in packetdailyCurrent Medication Active atorvastatin (LIPITOR) 10 mg tablet 018 Active Active Problems Problem Noted Date Diagnosed Date 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 Immunizations Immunization Administration Dates Next Due Influenza, Trivalent, High D ose, Split, Preservative Free, Intramuscular 04/09/2019 Influenza, Unspecified 04/16/2018,2016,06/10/2016,06/12,05/16/2014 Moderna SARS-CoV-2 Monovalen t Vaccination (12+ YRS) 09/15/2020,08/18/2020 Pneumococcal Polysaccharide PPV23 03/31/2020 Pneumococcal, Unspecified 06/16/2009 ZOSTER LIVE 06/10/2017 Social History Tobacco Use Types Packs/Day Years [...] on file 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[employer] Gender Identity Female 10/01/2018 3:37 PM CDT Sexual Orientation Choose not to disclose 2018 8:08 AM CDT Last Filed Vital Signs Vital Sign Reading [...] 01/03/2025 10:54 AM CDT Plan of Treatment Not on file Procedures Procedure Name Priority Date/Time Associated Diagnosis [...] Jalloh MD, PhD 12/28/2024 Testing performed by: [facility], [address] [place] [address] Blood 12/27/2024 9:01 AM CDT 12/27/2024 3:24 PM CDT us Kristina Bobo MD LAB BLOOD ORDERABLES Final [facility] [address] [place] [address] * eGFR (12/27/2024 9:01 AM [...] of Race in Diagnosing Kidney Disease, JASN 202). The CKD-EPI equation should not be used for patients with unstable renal function and has not been validated in children and those over 70. Current interpretive data was last reviewed 2021. Testing performed by: [address] [address] Blood 12/27/2024 9:01 AM CDT 12/27/2024 9:01 AM CDT Kristina Bobo MD LAB BLOOD ORDERABLES Final Result [place] [id number] [place] [address] * Differential, auto (12/27/2024 9:01 AM CDT) Neutrophil abs 2.71 1.50 - 6.50 K/cumm Comment:Testing performed by : [address] [address] Imm gran abs 0.01 0.00 - 0.10 K/cumm CHARLENE Comment:Testing performed by : [address] [address] Lymphocyte abs 1.80 0.80 - 3.30 K/cumm CHARLENE Comment:Testing performed by : [address] [address] Monocyte abs 0.43 0.20 - 0.80 K/cumm CHARLENE Comment:Testing performed by : [address] [address] Eosinophil abs 0.13 0.00 - 0.50 K/cumm CHARLENE Comment:Testing performed by : [address] [address] Basophil abs 0.06 0.00 - 0.10 K/cumm CHARLENE Comment:Testing performed by : [address] [address] Neutrophil pct 52.7 % C[facility] Comment: Interpretive Data Percent cell count reference ranges are not reported, since discordance with absolute values may lead to misinterpretation of CBC data. Current Interpretive Data was last revised on 2017. Testing performed by: [address] [address] Imm gran pct 0.2 % [facility] Comment: Interpretive Data Percent cell count reference ranges are not reported, since discordance with absolute values may lead to misinterpretation of CBC data. Current Interpretive Data was last revised on 2017. Testing performed by: [address] [address] Lymphocyte pct 35.0 % [facility] Comment: Interpretive Data Percent cell count reference ranges are not reported, since discordance with absolute values may lead to misinterpretation of CBC data. Current Interpretive Data was last revised on 2017. Testing performed by: [address] [address] Monocyte pct 8.4 % [facility] Comment: Interpretive Data Percent cell count reference ranges are not reported, since discordance with absolute values may lead to misinterpretation of CBC data. Current Interpretive Data was last revised on 2017. Testing performed by: [address] [address] Eosinophil pct 2.5 % [facility] Comment: Interpretive Data Percent cell count reference ranges are not reported, since discordance with absolute values may lead to misinterpretation of CBC data. Current Interpretive Data was last revised on 2017. Testing performed by: [address] [address] Basophil pct 1.2 % [facility] Comment: Interpretive Data Percent cell count reference ranges are not reported, since discordance with absolute values may lead to misinterpretation of CBC data. Current Interpretive Data was last revised on 2017. Testing performed by: [facility], [address] [place] [address]., [address] Blood 12/27/2024 9:01 AM CDT 12/27/2024 9:02 AM CDT Kristina Bobo MD LAB BLOOD ORDERABLES Final Result [facility] [address] [place] [address] * (ABNORMAL) Immunoglobulin free light chains (12/27/2024 9:01 AM CDT) [place]/Lambda ratio [facility] 0.03(L) 0.26 - 1.65 Comment: Interpretive Data The Binding Site FreeLite assay procedure was used. Results from different manufacturers or methods may not be comparable. Serial testing should be performed using the same methods and instrumentation. Current Interpretive Data was last revised on 2023. Testing performed by: [facility], [address] [place]., [address] [place] free light chain [facility] 1.34 0.33 - 1.94 mg/dL CHARLENE Comment: Interpretive Data The Binding Site FreeLite assay procedure was used. Results from different manufacturers or methods may not be comparable. Serial testing should be performed using the same methods and instrumentation. Current Interpretive Data was last revised on 2023. Testing performed by: [facility], [address] [place]., [address] Lambda free light chain [facility] 48.98(H) 0.57 - 2.63 mg/dL CHARLENE Comment: Interpretive Data The Binding Site FreeLite assay procedure was used. Results from different manufacturers or methods may not be comparable. Serial testing should be performed using the same methods and instrumentation. Current Interpretive Data was last revised on 2023. Testing performed by: [facility], [address] [place]., [address] Blood 12/27/2024 9:01 AM CDT 12/27/2024 3:24 PM CDT us Kristina Bobo MD LAB BLOOD ORDERABLES Final Result [facility] [address] [place] [address] * CBC with auto differential (12/27/2024 9:01 AM CDT) WBC 5.14 3.80 - 9.90 K/cumm Comment:Testing performed by : [address] [address] Hgb 12.6 11.9 - 15.5 g/dL CHARLENE Comment:Testing performed by : [address] [address] Hct 38.1 35.6 - 45.5 % CHARLENE Comment:Testing performed by : [address] [address] Plt 271 150 - 400 K/cumm CHARLENE Comment:Testing performed by : [address] [address] MPV 9.2 9.1 - 12.3 fL CHARLENE Comment:Testing performed by : [address] [address] RBC 4.31 3.90 - 5.20 M/cumm CHARLENE VELEZ Comment:Testing performed by : [address] [address] MCV 88.4 81.3 - 96.4 fL CHARLENE Comment:Testing performed by : [address] [address] MCH 29.2 27.1 - 33.3 pg CHARLENE Comment:Testing performed by : [address] [address] MCHC 33.1 32.3 - 35.7 g/dL CHARLENE Comment:Testing performed by : [address] [address] RDW CV 12.3 11.1 - 14.9 % CHARLENE Comment:Testing performed by : [address] [address] RDW SD 40.7 35.7 - 48.1 fL CHARLENE VELEZ Comment:Testing performed by : [address] [address] NRBC abs 0.00 0.00 - 0.01 K/cumm CHARLENE VELEZ Comment:Testing performed by : [address] [address] ANC Prelim 2.71 1.50 - 6.50 K/cumm CHARLENE VELEZ Comment: Interpretive Data The rapid ANC is a preliminary automated count and may vary from the final ANC (Neut Abs) reported in the WBC differential that follows. Current interpretive data was last revised 2024. Testing performed by: [address] [address] Blood 12/27/2024 9:01 AM CDT 12/27/2024 9:02 AM CDT Kristina Bobo MD LAB BLOOD ORDERABLES Final Result [facility] [address] [place] [address] * (ABNORMAL) Protein electrophoresis with reflex, serum with interpretation (12/27/2024 9:01 AM CDT) Pathologist [facility] Protein, sr 7.1 6.2 - 8.2 g/dL Comment:Testing performed by : [facility], [address] [place]., [address] Albumin 3.9 3.2 - 5.0 g/dL CHARLENE VELEZ Comment:Testing performed by : [facility], [address] [place]., [address] Alpha-1 globulin 0.3 0.2 - 0.4 g/dL CHARLENE VELEZ Comment:Testing performed by : [facility], [address] [place]., [address] Alpha-2 globulin 0.8 0.5 - 1.0 g/dL CHARLENE VELEZ Comment:Testing performed by : [facility], [address] [place]., [address] Beta-1 globulin 0.4 0.3 - 0.6 g/dL CHARLENE VELEZ Comment:Testing performed by : [facility], [address] [facility], [address] Beta-2 globulin 0.3 0.2 - 0.6 g/dL CHARLENE VELEZ Comment:Testing performed by : [facility], [address] [facility], [address] Gamma globulin 1.5 0.5 - 1.7 g/dL CHARLENE VELEZ Comment:Testing performed by : [facility], [address] [facility], [address] Rstr Pk Gamma 1.2(H) 0.0 - 0.0 g/dL CHARLENE VELEZ Comment:Testing performed by : [facility], [address] [place] [address], [address] SPEP interp Please see comment CHARLENE VELEZ Comment: Abnormal restricted peak in gamma region Electrophoretic pattern appears similar to previous sample 12/24/2023 See immunotyping for further information Reviewed and signed by Abel Jalloh MD, PhD 12/28/2024 Testing performed by: [facility], [address] [place] [address], [address] Blood 12/27/2024 9:01 AM CDT 12/27/2024 3:24 PM CDT us Kristina Bobo MD LAB BLOOD ORDERABLES Final Result [facility] [address] [place] [address] * Lactate dehydrogenase (LD) (12/27/2024 9:01 AM CDT) Lactate dehydrogenase (LDH) 146 100 - 250 Units/L Comment:Testing performed by : [facility], [address] [place] [address]., [address] Blood 12/27/2024 9:01 AM CDT 12/27/2024 9:01 AM CDT us Kristina Bobo MD LAB BLOOD ORDERABLES Final Result Performing Organization Address City/[facility] Co de Phone Number CHARLENE [address] [place] [address] * (ABNORMAL) IgA (12/27/2024 9:01 AM CDT) Immunoglobulin A 62(L) 70 - 400 mg/dL Blood 12/27/2024 9:01 AM CDT 12/27/2024 10:24 AM CDT us Kristina Bobo MD LAB BLOOD ORDERABLES Final Result Performing Organization Address [facility] Co de Phone Number JEANETTE[address] [place] [address] * IgM (12/27/2024 9:01 AM CDT) Immunoglobulin M 56 40 - 230 mg/dL Blood 12/27/2024 9:01 AM CDT 12/27/2024 10:24 AM CDT Result Catalina Bobo MD LAB BLOOD ORDERABLES Final Result Performing Organization Address City/[facility] Co de Phone Number [address] [place] [address] * IgG (12/27/2024 9:01 AM CDT) Immunoglobulin G 1,584 700 - 1,600 mg/dL Blood 12/27/2024 9:01 AM CDT 12/27/2024 10:24 AM CDT us Kristina Bobo MD LAB BLOOD ORDERABLES Final Result Performing Organization Address City/[facility] Co de Phone Number [address] [place] [address] * Beta 2 microglobulin, serum (12/27/2024 9:01 AM CDT) [facility] Beta 2 Microglobulin, Serum 2.00 1.00 - 2.50 mg/L Comment: Interpretive Data The Meghan Beta-2 microglobulin assay procedure was used. Results from different manufacturers or methods may not be comparable. Serial testing should be performed using the same method. Testing performed by: [address] [address] Blood 12/27/2024 9:01 AM CDT 12/27/2024 9:41 AM CDT Kristina Bobo MD LAB BLOOD ORDERABLES Final Result [address] [address] * Comprehensive metabolic panel (12/27/2024 9:01 AM CDT) [facility] Sodium 141 135 - 145 mmol/L Comment:Testing performed by : [address] [address] Potassium, pl 4.5 3.3 - 4.9 mmol/L CHARLENE Comment:Testing performed by : [address] [address] Chloride 104 97 - 110 mmol/L CHARLENE Comment:Testing performed by : [address] [address] CO2 27 22 - 32 mmol/L CHARLENE Comment:Testing performed by : [address] [address] Anion gap 10 2 - 15 mmol/L CHARLENE Comment:Testing performed by : [address] [address] BUN 13 6 - 25 mg/dL CHARLENE Comment:Testing performed by : [address] [address] Creatinine 0.80 0.60 - 1.10 mg/dL CHARLENE Comment:Testing performed by : [address] [address] Glucose 89 70 - 199 mg/dL CHARLENE [...] classification and Diagnosis of Diabetes Diabetes Care 2021; 46: S19-S40. Current interpretive data was last revised 2022. Testing performed by: [address] [address] Calcium 10.1 8.5 - 10.3 mg/dL CHARLENE Comment:Testing performed by : [address] [address] Bilirubin, total 0.4 0.1 - 1.2 mg/dL CHARLENE Comment:Testing performed by : [address] [address] Protein, pl 7.4 6.5 - 8.5 g/dL CHARLENE Comment:Testing performed by : [address] [address] Albumin 4.1 3.5 - 5.0 g/dL CHARLENE Comment:Testing performed by : [address] [address] Alk phos 82 40 - 130 Units/L CHARLENE Comment:Testing performed by : [address] [address] ALT 10 7 - 45 Units/L CHARLENE Comment:Testing performed by : [address] [address] AST 16 10 - 45 Units/L CHARLENE Comment:Testing performed by : [address] [address] Blood 12/27/2024 9:01 AM CDT 12/27/2024 9:01 AM CDT Kristina Bobo MD LAB BLOOD ORDERABLES Final Result [facility] [address] [place] [address] from Last 3 Months Insurance MEDICARE [employer] MEDICARE [employer] FOR LIFE Care Teams Pie Filling Mixer Relationship Specialty Start Date End Date Tuan Patricia DO PCP - General Internal Medicine 06/16/18 Tuan Patricia DO 06/16/18 Annemarie Altamirano NP [address] [place] [id number] Nurse Practitioner Medical Oncology 01/01/23
== END 2025-01-06 08:54 | disposition home or self-care (01) ==
PROVIDERS: PCP Internal Medicine; Visit Provider Nurse Practitioner
DX: Z12.31 Encounter for screening mammogram for malignant neoplasm of breast (principal)
CPT/HCPCS: 77067

== ENCOUNTER 2025-02-22 08:24 | Emergency (ER) | payer MEDICARE, OTHER, SELFPAY ==
--- NOTE | 2025-02-22 08:26 | ED.SKABFB ---
HPI - Skin/Abscess/Foreign Bdy General Chief complaint: Skin/Abscess/Foreign Body Stated complaint: Rash Time Seen by Provider: 02/22/25 08:30 Source: patient Mode of arrival: ambulatory Limitations: no limitations History of Present Illness HPI narrative: Adrienne is a 75-year-old female patient presenting to the clinic today with complaints of itchy red papular rash she is to ankles, knees, arms, and trunk. She reports she has been out the [place] over the weekend. No other environmental changes. Symptoms started on Friday. Rash is very itchy. Has tried qkxf-mny-dvpjjna anti-itch cream with minimal relief. Denies any chest pain, shortness of breath, drooling, difficulty swallowing, or difficulty breathing. Related Data Home Medications ?Medication ?Instructions ?Recorded ?Confirmed ?Last Taken ?Type ascorbic acid (vitamin C) 500 mg 1,000 mg PO DAILY 03/21/20 05/12/24 Unknown History capsule aspirin 81 mg tablet,delayed 81 mg PO DAILY 03/21/20 05/12/24 Unknown History release (Adult Low Dose Aspirin) omega-3 fatty acids 1,000 mg 1,000 mg PO DAILY 03/21/20 05/12/24 Unknown History capsule (Fish Oil Concentrate) Allergies Allergy/AdvReac Type Severity Reaction Status Date / Time sulfamethoxazole Allergy Mild itching Verified 02/22/25 08:31 Sulfa (Sulfonamide Allergy Unknown Itching Verified 02/22/25 08:31 Antibiotics) Review of Systems Review of Systems: Pertinent positives per HPI. Patient denies any fever, chills, headache, visual changes, dizziness, cough, runny nose, sore throat, shortness of breath, chest pain, palpitations, nausea, vomiting, diarrhea, constipation, abdominal pain, or any urinary issues. [facility] Past Medical History Medical History Osteopenia Vitamin D deficiency Smoldering myeloma Cholecystectomy planned 2008 Shingles Chicken pox Mumps History of one miscarriage Osteoporosis Anemia Hyperlipidemia LDL goal <130 Family history of hemochromatosis Monoclonal gammopathy of unknown significance Raynaud's disease with gangrene Surgical History Surgical History History of cholecystectomy Hx of hysterectomy Family History Family History Father Lung cancer Kidney disease Mother Cardiomyopathy Social History Social History Social History: Caffeine-3 cups daily Smoking status: Never smoker Second hand tobacco smoke exposure: No Alcohol intake: current Alcohol use details: occasionally wine Lack of Transportation: No Lack of Food: Never True Current Housing: I Have Housing Concerned About Future Housing: No Difficulty Paying Gas/Electric Bills: No Difficulty Paying for Meds: No Currently Unemployed: No Education: High School Diploma/GED Difficulty w/ Childcare or Family Care: No Comments At the time of my signature, I reviewed and agree with the nursing past medical, surgical, social, and family history. There is no relevant family history pertinent to the patient complaint. Exam Narrative: General: Well-developed, well nourished, in no apparent distress Head: Normocephalic, atraumatic. Cardio: Regular rate and rhythm, s1 and s2 normal, no murmur appreciated. Resp: Clear to auscultation bilaterally, no rhonchi, rales, wheezing or rubs. Integumentary: Hawley, warm, and dry, red, scattered, raised, papular, itchy blister-like rash to the ankles, posterior knees, bilateral forearms, neck, and trunk Course Course Emergency Course: Portions of this record may have been created with voice recognition software. Level of Care: Express Care Visit Vital Signs Vital signs: Vital Signs Temperature 36.6 C 02/22/25 08:33 Pulse Rate 76 02/22/25 08:33 Respiratory Rate 16 02/22/25 08:33 Blood Pressure 126/69 02/22/25 08:33 Pulse Oximetry 98 02/22/25 08:33 Temperature 36.6 C 02/22/25 08:33 Pulse Rate 76 02/22/25 08:33 Respiratory Rate 16 02/22/25 08:33 Blood Pressure 126/69 02/22/25 08:33 Pulse Oximetry 98 02/22/25 08:33 Vital signs reviewed MDM - Skin/Abscess/Foreign Bdy MDM Narrative Medical decision making narrative: At the time of visit patient is resting comfortably on the exam table. Patient appears to be nontoxic. Complaints of itchy red papular rash she is to ankles, knees, arms, and trunk. She reports she has been out the [place] over the weekend. No other environmental changes. Symptoms started on Friday. Rash is very itchy. Has tried kmzx-uec-nceknnw anti-itch cream with minimal relief. Denies any chest pain, shortness of breath, drooling, difficulty swallowing, or difficulty breathing. On exam patient has a red, scattered, raised, papular, itchy blister-like rash to the ankles, posterior knees, bilateral forearms, neck, and trunk Plan: I suspect patient has dermatitis. Prescription for triamcinolone cream and prednisone was sent to the pharmacy. Supportive measures were discussed with the patient and they voiced understanding discharge instructions and agrees to treatment plan. Return precautions reviewed Differential Diagnosis Differential diagnosis: Likely abscess of skin or subcutaneous tissue, viral exanthem, dermatophytosis, urticaria, herpes zoster, allergic reaction to drug, cellulitis, eczema, insect bites, impetigo and contact dermatitis Discharge Plan Discharge Clinical Impression: Dermatitis Patient Disposition: Home Condition: Stable Instructions: Antibiotic Form Additional Instructions: Apply triamcinolone cream as directed Take prednisone as directed Avoid hot showers Avoid scratching as this can cause a secondary infection May take Benadryl 25-50mg every 6 hours as needed for itching. Follow up with your PCP in 3-5 days if symptoms persist or sooner if they worsen Go to the Emergency Room if symptoms worsen- fever, rash spreading with treatment, shortness of breath, tongue swelling, drooling, or chest pain Patient Language: Citizen Of [place] Prescriptions: New prednisone 20 mg tablet 40 mg PO DAILY 5 Days Qty: 10 0RF triamcinolone acetonide 0.1 % cream 1 applic topical BID 7 Days Qty: 30 0RF No Action aspirin [Adult Low Dose Aspirin] 81 mg tablet,delayed release (DR/EC) 81 mg PO DAILY ascorbic acid (vitamin C) 500 mg capsule 1,000 mg PO DAILY omega-3 fatty acids [Fish Oil Concentrate] 1,000 mg capsule 1,000 mg PO DAILY atorvastatin 10 mg tablet 10 mg PO .COMPLEX Qty: 45 1RF Rx Instructions: 10 mg orally --; Follow-up/Referrals: Tuan Patricia DO [Primary Care Provider, Internal Medicine] Time of Disposition: 08:37 Quality NIHSS Nursing Documentation ED NIHSS nursing documentation: reviewed/agree
[2025-02-22 08:33] VITALS: BP 126/69; PULSE 76; RESP 16; TEMP 36.6; O2SAT 98
== END 2025-02-22 08:40 | disposition home or self-care (01) ==
PROVIDERS: Emergency Provider Nurse Practitioner Family; PCP Internal Medicine
DX: L30.9 Dermatitis, unspecified (principal); E55.9 Vitamin D deficiency, unspecified; M81.0 Age-related osteoporosis without current pathological fracture; E78.5 Hyperlipidemia, unspecified; I73.01 Raynaud's syndrome with gangrene
CPT/HCPCS: 99213; G0463

== ENCOUNTER 2025-03-09 12:46 | Outpatient (CLI) | payer MEDICARE, OTHER, SELFPAY ==
--- OUTSIDE RECORDS SUMMARY | 2025-03-09 13:23 | XMS_ITS | Encounter Summary ---
Author Organization [facility] Address [address] [place] [address] Care Team Providers Care Thread Trimmer Name Role Phone Unavailable Primary Care Provider Unavailabl e Encounter Details Date Type Department Care Team (Late st Contact Info) Description 01/14/2019 Lab Requisition [facility] Care Pathology Lab [address] [place] [address] Keegan Perez MD [address] [address] Social History Tobacco Use Types [...] Report Bone Marrow Patholog y Report Case: [id number] Authorizing Provider: Keegan Perez MD Collected: 01/13/2019 [...] - See microscopic description. 01/29/2019 4:10 PM [facility] PATHOLOGY LAB at 1727 CDT AP Comment [...] of this process. KR 01/29/2019 4:10 PM [facility] PATH[facility] Peripheral Smear Description CBC Data: [...] normal. Platelet morphology: normal. 01/29/2019 4:10 PM [facility] PATH[facility] Bone Marrow Aspirate Differential count [...] (by special stain): decreased. 01/29/2019 4:10 PM [facility] Bone Marrow Core Biopsy and [...] the bone marrow core biopsy in the [facility] Department of Pathology. Controls are appropriately reactive. CD138 highlights increased plasma cells, estimated to comprise 20% of the marrow cellularity. These cells are arranged singly and in small clusters. CD3 and CD20 highlight interstitial T-cells and B-cells, respectively. The lymphoid aggregate is no longer in the section on the immunohistochemical stains. 01/29/2019 4:10 PM [facility] Flow Cytometry Summary Concurrent flow cytometry ([id number]) shows bone marrow involvement by a plasma cell dyscrasia with no evidence of non-Hodgkin lymphoma or high grade myeloid neoplasm. 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 01/29/2019 4:10 PM [facility] Materials Received Received are 15 slides and 2 blocks labeled as [id number] along with the outside pathology report. [place] [address]. All materials are returned to the referring institution, along with a copy of our final report. 01/29/2019 4:10 PM [facility] Disclaimer The performance characteristics of all immunohistochemical and indirect immunofluorescence stains (if any) cited in this report were determined by the Histopathology Laboratory of [facility]. Some of these tests were developed by [...] interpretation of this case [facility], [address] [place] [address]. 01/29/2019 4:10 PM CDT [facility] PATHOLOGY LAB Addendum 1 This addendum is issued to report the results of cytogenetics and FISH performed at [facility], [address] [place] [address], [address], [place] [id number]. A normal female karyotype (46,XX[20]) is reported ([id number]). FISH was performed for the myeloma panel. A gain of 1q21 was detected in 23% of cells. A CCND1/IGH translocation is reported in 57% of nuclei ([id number]). Please see the reference lab report for additional details. KR 01/29/2019 4:10 PM CDT [facility] PATHOLOGY LAB Addendum electronically signed by Silvana Mcbride MD on 01/29/2019 at 1610 CDT Embedded Images 01/29/2019 4:10 PM CDT [facility] PATHOLOGY LAB Pathology/Cytology SPECIMEN FROM BONE MARROW [...] PATHOLOGY/CYTOLOGY ORDER JADA Edited Result - Final [facility] PATHOLOGY LAB [address] [place] [address], [facility] [phone] documented in this encounter Visit Diagnoses Not on filedocumented in this encounter
--- OUTSIDE RECORDS SUMMARY | 2025-03-09 13:23 | XMS_ITS | Clinical Summary ---
Author Organization [facility] Address [address] [place] [address] Care Team Providers Care Railway Track Plant Operator Name Role Phone Unavailable Primary Care Provider Unavailabl e Source Comments [facility] [email or web address],non-owned Affiliates and Associated Physician Practices is amultiple site organization consisting of ambulatory clinics and hospital sitesin [place], [place], [place] and [place]. This disclosure is being madepursuant to the Care Everywhere program and may not contain all information available regarding this patient. Last updated [email or web address] Social History Tobacco Use Types Packs/Day Years [...]
--- OUTSIDE RECORDS SUMMARY | 2025-03-09 13:23 | XMS_ITS | Encounter Summary ---
Author Organization [facility] Address [address] [facility] [place] [address] Care Team Providers Care Fence Laborer Name Role Phone Unavailable Primary Care Provider Unavailabl e Encounter Details Date Type Department Care Team (Late st Contact Info) Description 01/14/2019 Lab Requisition [facility] - Lab Cytogenetics [address] [place], [place] [id number] Justyn Soria MD [address] [facility] [place], [place] [id number] Monoclonal gammopathy Social History Tobacco Use Types [...] for Study MGUS 9 2:13 PM CDT [facility] MOLE[facility] CYTOGENOMIC LAB Results Cytogenetics Fluorescence In-Situ Hybridization (FISH): Analysis of 100 to 200 interphase cells obtained from a sample enriched with CD-138 plasma cells and hybridized with each of dual labeled (directed onto) CDKN2/CKS1B/ (1p32.3/1q21), dual labeled dual fusion FGFR3/IGH (4p16/14q32), CCND1/IGH (11q13/14q32, dual labeled ATM1/P53 (11q22.3/17p13.1), triple labeled H41B530/LAMP1/CEP12 (13q14/13q34/cent12) , and dual labeled dual fusion MAF/IGH (16q23/IGH), dual labeled IGH break-apart probe* directed onto 14q32 and with specific centromere probes of chromosomes 7 and 9 specific fluorescent labeled probes* showed the following results: nuc rachel(LIIX5Ha8,RJW5No1 )[15100],(FPGX4u5,I GHx3)[],(CEP7, CEP9)x2[200], (CCND1,IGH)x3(CCND1 con IGHx2)[/100],(JOSE CARLOS, p53)x2[150],(CEP12,D 52V243,LAMP1)x2[200] (IGHx2)(5'IGH sep 3'IGHx1)[41/100],(IG Hx3,MAFx2)[] Abnormal 9 2:13 PM [facility] CYTOGENOMIC [facility] Interpretation FISH of multiple [...] Clinicopathological correlation is suggested. 9 2:13 PM [facility] CYTOGENOMIC [facility] at 1413 CDT Disclaimer *This test was developed, and its performance characteristics determined by [facility] Molecular Cytogenetics Laboratory as required by CLIA [...] with cytogenetic findings. 9 2:13 PM CDT [facility] CYTOGENOMIC [facility] Client [facility] - #[id number] 9 2:13 PM CDT [facility] MOLE[facility] CYTOGENOMIC LAB Embedded Images 9 2:13 PM T [facility] MO[facility] CYTOGENOMIC LAB Other BONE MARROW SPECIMEN / Unknown 01/13/2019 10:30 AM CDT 01/14/2019 9:47 AM CDT us Justyn Soria MD LAB - PATHOLOGY/CYTOLOGY ORDER JADA Final Result [facility] CYTOGENOMIC LAB [facility] [place] [address] documented in this encounter Visit Diagnoses Diagnosis Monoclonal gammopathy Monoclonal paraproteinemia documented in this encounter
--- OUTSIDE RECORDS SUMMARY | 2025-03-09 13:23 | XMS_ITS | Encounter Summary ---
Author Organization [facility] [place] [facility] Address [address] [place] [address] Care Team Providers Care Group Chief Operator Name Role Phone Unavailable Primary Care Provider Unavailabl e Encounter Details Date Type Department Care Team (Late st Contact Info) Description 01/13/2019 Lab Requisition [facility] Pathology Lab [address] [place] [address] Keegan Perez MD [address] [address] Monoclonal gammopathy Social History Tobacco [...] MARROW (01/13/2019) Case Report Flow Cytometry Case: [id number] Authorizing Provider: Keegan Perez MD Collected: 01/13/2019 Pathologist: Silvana Mcbride MD Received: 01/13/2019 04:02 PM Specimen: Bone Marrow 01/14/2019 11:03 AM [facility] Final Diagnosis Bone marrow, flow cytometric immunophenotypic analysis: - Plasma cell dyscrasia. - No evidence of non-Hodgkin lymphoma or high grade myeloid neoplasm. - See interpretation. 01/14/2019 11:03 AM CDT [facility] PATH[facility] LAB at [address] [facility] Flow Cytometry Interpretation The [...] the flow cytometry specimen is reviewed for quality control manager purposes. In summary, the bone marrow specimen [...] of this process. KR 01/14/2019 11:03 AM [facility] PATHOLOGY LAB Flow Cytometry Results Differential Result Comment Flow Cell Count /uL 8400 Total Viability % 100.0 Lymphocytes % 44 Dim CD45 Region % 2 Monocytes % 2 Granulocytes % 50 01/14/2019 11:03 AM [facility] PATHOLOGY LAB Reason for test Monoclonal gammopathy 273.1 01/14/2019 11:03 AM [facility] PATHOLOGY LAB Client Specimen ID # [id number] 01/14/2019 11:03 AM [facility] PATHOLOGY LAB Number of markers 14 were performed. A Flow CD10 A Flow CD13 A Flow CD20 A Flow CD117 A FLOW CD138 A Flow CD5 A Flow CD19 A Flow CD33 A Flow CD34 A Flow CD45 A Flow CD38 A Flow CD56 A [place]+CD19+ A Lambda+CD19+ 01/14/2019 11:03 AM [facility] PATHOLOGY LAB Disclaimer Test performed at [facility], [address] [place], [place], [address]. *The established laboratory minimum viability is 70%. [...] complexity clinical testing. 01/14/2019 11:03 AM CDT [facility] PATHOLOGY LAB Embedded Images 11:03 AM CDT [facility] PATHOLOG[facility] LAB Pathology/Cytolog y BONE MARROW SPECIMEN / Unknown 01/13/2019 01/13/2019 4:02 PM CDT us Keegan Perez MD LAB - PATHOLOGY/CYTOLOGY ORDER JADA Final Result [facility] PATHOLOGY LAB [address] [place], [place] [id number] [place] [address] documented in this encounter Visit Diagnoses Diagnosis Monoclonal gammopathy Monoclonal paraproteinemia documented in this encounter
--- OUTSIDE RECORDS SUMMARY | 2025-03-09 13:23 | XMS_ITS | Clinical Summary ---
Author Organization [facility] Address [address] [facility] [place] [address] Phone Care Team Providers Care Crab Backer Name Role Phone Tuan Patricia DO Primary Care Provider Tuan Patricia DO Unavailable [phone] Annemarie Altamirano SHIPPING PACKER Unavailable Allergies Active Allergy Reactions Criticality Noted Date Comments Sulfa (Sulfonamide Antibiotics) Itching,Rash Medium Medications aspirin 81 mg enteric coated tablet 06/10/2017Aspirin, po solid 81 mg Tablet, delayed release (enteric coated)POdailyCurrent Medication 017 Active calcium carbonate-vit reich D3 600 mg calcium- 200 unit capsule 06/10/2017Calcium + d, po solid 600 mg-100 Capsule(s)POdailyCurrent Medication 017 Active omega 9-txl-euy-fis h oil 100-160-1,000 mg capsule 06/10/2017Fish oil [...] Description 01/03/2025 11:00 AM CDT Office Visit [facility] [place] [facility] [address] [place] [address] [phone] Kristina Bobo MD MGUS (monoclonal gammopathy of unknown significance) (Primary Dx); Monoclonal gammopathy of unknown significance; Smoldering myeloma 12/27/2024 9:00 AM CDT Lab [facility] at [address] [address] Monoclonal gammopathy of unknown significance; Smoldering myeloma; MGUS (monoclonal gammopathy of unknown significance) 12/27/2024 Orders Only [facility] Oncology [address] [place] [address] [phone] Arcelia Argueta RN MGUS (monoclonal gammopathy of unknown significance) (Primary Dx) from Last 3 Months Immunizations Immunization Administration [...] on file Legal Sex Female 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 Gender Identity Female 10/01/2018 3:37 PM CDT [...] Zoster Vaccine (1 of 2) 08/05/2017 06/10/2017 Pneumococcal vaccine 65+ (2 of 2 - PCV) 03/31/2021 03/31/2020, 06/16/2009 Covid-19 Vaccine (3 - 2023-2 5 season) 2024 09/15/2020, 08/18/2020 Influenza Vaccine (#1) 2025 9, 04/16/2018, 06/10/2017, [...] Jalloh MD, PhD 12/28/2024 Testing performed by: [facility], [address] [place] [address] Blood 12/27/2024 9:01 AM CDT 12/27/2024 3:24 PM CDT Kristina Bobo MD LAB BLOOD ORDERABLES Final Result [facility] [place] [address] * eGFR (12/27/2024 9:01 AM [...] was last reviewed 2021. Testing performed by: [facility], [address] [place] [address]., [address] Blood 12/27/2024 9:01 AM CDT 12/27/2024 9:01 AM CDT Kristina Bobo MD LAB BLOOD ORDERABLES Final Result CHARLENE [address] Department [place] [address] * Differential, auto (12/27/2024 9:01 AM CDT) Neutrophil abs 2.71 1.50 - 6.50 K/cumm Comment:Testing performed by : [address] [address] Imm gran abs 0.01 0.00 - 0.10 K/cumm CHARLENE Comment:Testing performed by : [address] [address] Lymphocyte abs 1.80 0.80 - 3.30 K/cumm CHARLENE Comment:Testing performed by : [address] [address] Monocyte abs 0.43 0.20 - 0.80 K/cumm CHARLENE Comment:Testing performed by : [address] [address] Eosinophil abs 0.13 0.00 - 0.50 K/cumm CHARLENE Comment:Testing performed by : [address] [address] Basophil abs 0.06 0.00 - 0.10 K/cumm CHARLENE Comment:Testing performed by : [address] [address] Neutrophil pct 52.7 % CHARLENE Comment: Interpretive Data Percent cell count reference ranges are not reported, since discordance with absolute values may lead to misinterpretation of CBC data. Current Interpretive Data was last revised on 2017. Testing performed by: [address] [address] Imm gran pct 0.2 % CHARLENE Comment: Interpretive Data Percent cell count reference ranges are not reported, since discordance with absolute values may lead to misinterpretation of CBC data. Current Interpretive Data was last revised on 2017. Testing performed by: [address] [address] Lymphocyte pct 35.0 % CHARLENE Comment: Interpretive Data Percent cell count reference ranges are not reported, since discordance with absolute values may lead to misinterpretation of CBC data. Current Interpretive Data was last revised on 2017. Testing performed by: [address] [address] Monocyte pct 8.4 % [facility] Comment: Interpretive Data Percent cell count reference ranges are not reported, since discordance with absolute values may lead to misinterpretation of CBC data. Current Interpretive Data was last revised on 2017. Testing performed by: [address] [address] Eosinophil pct 2.5 % [facility] Comment: Interpretive Data Percent cell count reference ranges are not reported, since discordance with absolute values may lead to misinterpretation of CBC data. Current Interpretive Data was last revised on 2017. Testing performed by: [address] [address] Basophil pct 1.2 % [facility] Comment: Interpretive Data Percent cell count reference ranges are not reported, since discordance with absolute values may lead to misinterpretation of CBC data. Current Interpretive Data was last revised on 2017. Testing performed by: [address] [address] Blood 12/27/2024 9:01 AM CDT 12/27/2024 9:02 AM CDT Kristina Bobo MD LAB BLOOD ORDERABLES Final Result [facility] [address] [facility] Department [place] [address] * (ABNORMAL) Immunoglobulin free light chains (12/27/2024 9:01 AM CDT) Pathologist [facility] [place]/Lambda ratio [facility] 0.03(L) 0.26 - 1.65 Comment: Interpretive Data The Binding Site FreeLite assay procedure was used. Results from different manufacturers or methods may not be comparable. Serial testing should be performed using the same methods and instrumentation. Current Interpretive Data was last revised on 2023. Testing performed by: [facility], [address] [place]., [address] [place] free light chain [facility] 1.34 0.33 - 1.94 mg/dL CHARLENE VELEZ Comment: Interpretive Data The Binding Site FreeLite assay procedure was used. Results from different manufacturers or methods may not be comparable. Serial testing should be performed using the same methods and instrumentation. Current Interpretive Data was last revised on 2023. Testing performed by: [facility], [address] [place] [address]., [address] Lambda free light chain [facility] 48.98(H) 0.57 - 2.63 mg/dL CHARLENE VELEZ Comment: Interpretive Data The Binding Site FreeLite assay procedure was used. Results from different manufacturers or methods may not be comparable. Serial testing should be performed using the same methods and instrumentation. Current Interpretive Data was last revised on 2023. Testing performed by: [facility], [address] [place] [address]., [address] Blood 12/27/2024 9:01 AM CDT 12/27/2024 3:24 PM CDT Kristina Bobo MD LAB BLOOD ORDERABLES Final Result CHARLENE [address] [facility] Department [place] [address] * CBC with auto differential (12/27/2024 9:01 AM CDT) WBC 5.14 3.80 - 9.90 K/cumm Comment:Testing performed by : [address] [address] Hgb 12.6 11.9 - 15.5 g/dL CHARLENE VELEZ Comment:Testing performed by : [address] [address] Hct 38.1 35.6 - 45.5 % CHARLENE VELEZ Comment:Testing performed by : [address] [address] Plt 271 150 - 400 K/cumm CHARLENE VELEZ Comment:Testing performed by : [address] [address] MPV 9.2 9.1 - 12.3 fL CHARLENE Comment:Testing performed by : [address] [address] RBC 4.31 3.90 - 5.20 M/cumm CHARLENE Comment:Testing performed by : [address] [address] MCV 88.4 81.3 - 96.4 fL CHARLENE Comment:Testing performed by : [address] [address] MCH 29.2 27.1 - 33.3 pg CHARLENE Comment:Testing performed by : [address] [address] MCHC 33.1 32.3 - 35.7 g/dL CHARLENE Comment:Testing performed by : [address] [address] RDW CV 12.3 11.1 - 14.9 % CHARLENE Comment:Testing performed by : [address] [address] RDW SD 40.7 35.7 - 48.1 fL CHARLENE Comment:Testing performed by : [address] [address] NRBC abs 0.00 0.00 - 0.01 K/cumm CHARLENE Comment:Testing performed by : [address] [address] ANC Prelim 2.71 1.50 - 6.50 K/cumm CHARLENE Comment: Interpretive Data The rapid ANC is a preliminary automated count and may vary from the final ANC (Neut Abs) reported in the WBC differential that follows. Current interpretive data was last revised 2024. Testing performed by: [address] [address] Blood 12/27/2024 9:01 AM CDT 12/27/2024 9:02 AM CDT us Kristina Bobo MD LAB BLOOD ORDERABLES Final Result CHARLENE VELEZ [address] [facility] Department [place] [address] * (ABNORMAL) Protein electrophoresis with reflex, serum with interpretation (12/27/2024 9:01 AM CDT) Pathologist [facility] Protein, sr 7.1 6.2 - 8.2 g/dL Comment:Testing performed by : [facility], [address] [place] [address], [address] Albumin 3.9 3.2 - 5.0 g/dL CHARLENE VELEZ Comment:Testing performed by : [facility], [address] [place] [address], [address] Alpha-1 globulin 0.3 0.2 - 0.4 g/dL CHARLENE Comment:Testing performed by : [facility], [address] [place] [address], [address] Alpha-2 globulin 0.8 0.5 - 1.0 g/dL CHARLENE Comment:Testing performed by : [facility], [address] [place] [address], [address] Beta-1 globulin 0.4 0.3 - 0.6 g/dL CHARLENE Comment:Testing performed by : [facility], [address] [place] [address], [address] Beta-2 globulin 0.3 0.2 - 0.6 g/dL CHARLENE Comment:Testing performed by : [facility], [address] [place] [address]., [address] Gamma globulin 1.5 0.5 - 1.7 g/dL CHARLENE Comment:Testing performed by : [facility], [address] [place] [address], [address] Rstr Pk Gamma 1.2(H) 0.0 - 0.0 g/dL CHARLENE VELEZ Comment:Testing performed by : [facility], [address] [place] [address], [address] SPEP interp Please see comment CHARLENE VELEZ Comment: Abnormal restricted peak in gamma region Electrophoretic pattern appears similar to previous sample 12/24/2023 See immunotyping for further information Reviewed and signed by Abel Jalloh MD, PhD 12/28/2024 Testing performed by: [facility], [address] [place]., [address] Blood 12/27/2024 9:01 AM CDT 12/27/2024 3:24 PM CDT Kristina Bobo MD LAB BLOOD ORDERABLES Final Result [address] [place] [address] * Lactate dehydrogenase (LD) (12/27/2024 9:01 AM CDT) Pathologist [facility] Lactate dehydrogenase (LDH) 146 100 - 250 Units/L Comment:Testing performed by : [facility], [address] [place] [address]., [address] Blood 12/27/2024 9:01 AM CDT 12/27/2024 9:01 AM CDT Kristina Bobo MD LAB BLOOD ORDERABLES Final Result Performing Organization Address [facility] Co de Phone Number [address] [place] [address] * (ABNORMAL) IgA (12/27/2024 9:01 AM CDT) Pathologist [facility] Immunoglobulin A 62(L) 70 - 400 mg/dL Blood 12/27/2024 9:01 AM CDT 12/27/2024 10:24 AM CDT Kristina Bobo MD LAB BLOOD ORDERABLES Final Result Performing Organization Address City/[facility]/ZIP Co de Phone Number [address] Cluster [place] [address] * IgM (12/27/2024 9:01 AM CDT) Pathologist [facility] Immunoglobulin M 56 40 - 230 mg/dL Blood 12/27/2024 9:01 AM CDT 12/27/2024 10:24 AM CDT Kristina Bobo MD LAB BLOOD ORDERABLES Final Result Performing Organization Address [facility] Co de Phone Number [address] [address] * IgG (12/27/2024 9:01 AM CDT) [facility] Immunoglobulin G 1,584 700 - 1,600 mg/dL Blood 12/27/2024 9:01 AM CDT 12/27/2024 10:24 AM CDT Kristina Bobo MD LAB BLOOD ORDERABLES Final Result Performing Organization Address [facility] Phone Number [address] [address] * Beta 2 microglobulin, serum (12/27/2024 9:01 AM CDT) [facility] Beta 2 microglobulin, bld 2.00 1.00 - 2.50 mg/L Comment: Interpretive Data The Meghan Beta-2 microglobulin assay procedure was used. Results from different manufacturers or methods may not be comparable. Serial testing should be performed using the same method. Testing performed by: [facility], [address] [place] [address]., [address] Blood 12/27/2024 9:01 AM CDT 12/27/2024 9:41 AM CDT Kristina Bobo MD LAB BLOOD ORDERABLES Final Result Performing Organization Address [facility] Co de Phone Number [address] [address] * Comprehensive metabolic panel (12/27/2024 9:01 AM CDT) Sodium 141 135 - 145 mmol/L Comment:Testing performed by : [facility], [address] [place] [address], [place]., [address] Potassium, pl 4.5 3.3 - 4.9 mmol/L CHARLENE Comment:Testing performed by : [address], [place]., [address] Chloride 104 97 - 110 mmol/L CHARLENE Comment:Testing performed by : [address], [place]., [address] CO2 27 22 - 32 mmol/L CHARLENE Comment:Testing performed by : [address], [place]., [address] Anion gap 10 2 - 15 mmol/L CHARLENE Comment:Testing performed by : [address], [place]., [address] BUN 13 6 - 25 mg/dL CHARLENE Comment:Testing performed by : [address], [place]., [address] Creatinine 0.80 0.60 - 1.10 mg/dL CHARLENE Comment:Testing performed by : [address], [place]., [address] Glucose 89 70 - 199 mg/dL CHARLENE [...] was last revised 2022. Testing performed by: [address] [address] Calcium 10.1 8.5 - 10.3 mg/dL CHARLENE Comment:Testing performed by : [address], [place]., [address] Bilirubin, total 0.4 0.1 - 1.2 mg/dL CHARLENE Comment:Testing performed by : [address], [facility] [place]., [address] Protein, pl 7.4 6.5 - 8.5 g/dL CHARLENE Comment:Testing performed by : [address] [address] Albumin 4.1 3.5 - 5.0 g/dL CHARLENE VELEZ Comment:Testing performed by : [address] [address] Alk phos 82 40 - 130 Units/L CHARLENE Comment:Testing performed by : [address] [address] ALT 10 7 - 45 Units/L CHARLENE Comment:Testing performed by : [address] [address] AST 16 10 - 45 Units/L CHARLENE Comment:Testing performed by : [address] [address] Blood 12/27/2024 9:01 AM CDT 12/27/2024 9:01 AM CDT us Kristina Bobo MD LAB BLOOD ORDERABLES Final Result CHARLENE [address] [facility] Department [place] [address] from Last 3 Months Insurance MEDICARE [id number] MEDICARE [facility] Care Teams Crab Backer Relationship Specialty Start Date End Date Tuan Patricia DO PCP - General Internal Medicine 06/16/18 Tuan Patricia DO 06/16/18 Annemarie Altamirano NP [address] [place] [phone] Nurse Practitioner Medical Oncology 01/01/23
[2025-03-09 19:12] LABS: Alanine Aminotransferase 15 U/L (6-35); Albumin Level 4.1 g/dL (3.5-5.1); Alkaline Phosphatase 90 U/L (38-126); Anion Gap 6 mmol/L (4-12); Aspartate Amino Transferase 53 U/L (14-36); Bilirubin,Total 0.4 mg/dL (0.2-1.3); Blood Urea Nitrogen 14 mg/dL (7-17); Calcium 10.1 mg/dL (8.4-10.2); Carbon Dioxide 29 mmol/L (22-30); Chloride 102 mmol/L (98-107); Estimated Glomerular Filt Rate > 60; Glucose 94 mg/dL (65-110); Potassium 4.7 mmol/L (3.4-5.0); Sodium 137 mmol/L (137-145); Total Protein 7.6 g/dL (6.3-8.2)
[2025-03-09 19:18] LABS: Hematocrit 39.8 % (37.0-47.0); Hemoglobin 12.6 g/dL (12.0-15.0); Immature Granulocyte Percent A 0.4 % (0-0.5); Lymphocytes Absolute Auto 2.27 K/mm3 (0.9-3.2); Mean Corpuscular HGB Conc 31.7 g/dl (32-36); Mean Corpuscular Hemoglobin 29.6 pg (26-34); Mean Corpuscular Volume 93.6 fl (80-100); Nucleated Red Blood Cells Absolute Auto 0.000 K/mm3 (0.0-0.012); Nucleated Red Blood Cells Perc 0.0 % (0.0-0.2); Platelet Count Result 277 k/mm3 (150-375); Red Blood Count 4.25 M/mm3 (4.2-5.4); White Blood Count 8.3 K/mm3 (4.5-10.0)
[2025-03-09 19:25] LABS: Add Urine Microscopic? NO; Appearance Urine Clear (Clear); Glucose Urine UA Negative (Negative); Leukocyte Esterase Ur Negative LEU/UL (Negative); Nitrate Urine Negative (Negative); Specific Grav Ur 1.021 (1.001-1.035)
[2025-03-09 19:48] LABS: Thyroid Stimulating Hormone 2.320 uIU/mL (0.465-4.680)
[2025-03-09 20:07] LABS: Vitamin B12 283.0 pg/mL (239-931)
== END 2025-03-09 12:47 | disposition home or self-care (01) ==
LOC: ANHGOSHLAB 12:47
PROVIDERS: PCP Internal Medicine; Visit Provider Nurse Practitioner
DX: R41.3 Other amnesia (principal)
CPT/HCPCS: 36415; 80053; 81003; 82607; 84443; 85025

== ENCOUNTER 2025-03-31 10:49 | Outpatient (CLI) | payer MEDICARE, OTHER, SELFPAY ==
--- OUTSIDE RECORDS SUMMARY | 2025-03-31 11:22 | XMS_ITS | Clinical Summary ---
Author Organization [facility] Address [address] [place] [address] Care Team Providers Care Pointer Machine Operator Name Role Phone Unavailable Primary Care Provider Unavailabl e Source Comments [facility],non-owned Affiliates and Associated Physician Practices is amultiple site organization consisting of ambulatory clinics and hospital sitesin [place], [place], [place] and [place]. This disclosure is being madepursuant to the Care Everywhere program and may not contain all information available regarding this patient. Last updated 18.[facility] Social History Tobacco Use Types Packs/Day Years [...] 01/19/2002 ZOSTER VACCINE (1 of 2) 01/19/2002 DEPRESSION SCREENING 06/30/2024 COVID-19 VACCINE (1 - 2023-2 5 season) 2025 INFLUENZA VACCINE (#1) 2025 Respiratory Syncytial Virus [...]
--- OUTSIDE RECORDS SUMMARY | 2025-03-31 11:22 | XMS_ITS | Encounter Summary ---
Author Organization [facility] Address [address] [place] [address] Care Team Providers Care Senior Piping Designer Name Role Phone Unavailable Primary Care Provider Unavailabl e Encounter Details Date Type Department Care Team (Late st Contact Info) Description 01/14/2019 Lab Requisition [facility] Care Pathology Lab [address] [place] [address] Keegan Perez MD [address] [address] Social History Tobacco Use Types [...] Report Bone Marrow Patholog y Report Case: [id number] Authorizing Provider: Keegan Perez MD Collected: 01/13/2019 [...] - See microscopic description. 01/29/2019 4:10 PM [facility] at 1727 CDT AP [...] of this process. KR 01/29/2019 4:10 PM [facility] Peripheral Smear Description CBC [...] normal. Platelet morphology: normal. 01/29/2019 4:10 PM [facility] Bone Marrow Aspirate Differential [...] (by special stain): decreased. 01/29/2019 4:10 PM [facility] Bone Marrow Core Biopsy [...] the bone marrow core biopsy in the [facility] Department of Pathology. Controls are appropriately reactive. CD138 highlights increased plasma cells, estimated to comprise 20% of the marrow cellularity. These cells are arranged singly and in small clusters. CD3 and CD20 highlight interstitial T-cells and B-cells, respectively. The lymphoid aggregate is no longer in the section on the immunohistochemical stains. 01/29/2019 4:10 PM [facility] Flow Cytometry Summary Concurrent flow cytometry ([id number]) shows bone marrow involvement by a plasma cell dyscrasia with no evidence of non-Hodgkin lymphoma or high grade myeloid neoplasm. 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 01/29/2019 4:10 PM [facility] Materials Received Received are 15 slides and 2 blocks labeled as [id number] along with the outside pathology report. [place] [address]. All materials are returned to the referring institution, along with a copy of our final report. 01/29/2019 4:10 PM [facility] Disclaimer The performance characteristics of all immunohistochemical and indirect immunofluorescence stains (if any) cited in this report were determined by the Histopathology Laboratory of [facility]. Some of these tests were developed [...] [facility], [address] [place] [address]. 01/29/2019 4:10 PM CDT [facility] PATHOLOGY LAB Addendum 1 This addendum is issued to report the results of cytogenetics and FISH performed at [facility], [address] [place] [address], [address], [place] [id number]. A normal female karyotype (46,XX[20]) is reported ([id number]). FISH was performed for the myeloma panel. A gain of 1q21 was detected in 23% of cells. A CCND1/IGH translocation is reported in 57% of nuclei ([id number]). Please see the reference lab report for additional details. KR 01/29/2019 4:10 PM CDT [facility] PATHOLOGY LAB Addendum electronically signed by Silvana Mcbride MD on 01/29/2019 at 1610 CDT Embedded Images 01/29/2019 4:10 PM CDT [facility] PATHOLOGY LAB Pathology/Cytology SPECIMEN FROM BONE MARROW [...] PATHOLOGY/CYTOLOGY ORDER JADA Edited Result - Final [facility] PATHOLOGY LAB [address] [place] [address], [facility] [phone] documented in this encounter Visit Diagnoses Not on filedocumented in this encounter
--- OUTSIDE RECORDS SUMMARY | 2025-03-31 11:22 | XMS_ITS | Encounter Summary ---
Author Organization [facility] Address [address] [place] [address] Care Team Providers Care Record Press Tender Name Role Phone Unavailable Primary Care Provider Unavailabl e Encounter Details Date Type Department Care Team (Late st Contact Info) Description 01/14/2019 Lab Requisition [facility] - Lab Cytogenetics [address] [place], [place] [id number] Justyn Soria MD [address] [facility] [place], [place] [id number] Monoclonal gammopathy Social History Tobacco Use Types [...] for Study MGUS 9 2:13 PM CDT [facility]OMIC [facility] Results Cytogenetics Fluorescence In-Situ Hybridization (FISH): Analysis of 100 to 200 interphase cells obtained from a sample enriched with CD-138 plasma cells and hybridized with each of dual labeled (directed onto) CDKN2/CKS1B/ (1p32.3/1q21), dual labeled dual fusion FGFR3/IGH (4p16/14q32), CCND1/IGH (11q13/14q32, dual labeled ATM1/P53 (11q22.3/17p13.1), triple labeled A94T534/LAMP1/CEP12 (13q14/13q34/cent12) , and dual labeled dual fusion MAF/IGH (16q23/IGH), dual labeled IGH break-apart probe* directed onto 14q32 and with specific centromere probes of chromosomes 7 and 9 specific fluorescent labeled probes* showed the following results: nuc rachel(WMMQ2Hf7,ARA5Zj4 )[15100],(ZICY4u9,I GHx3)[],(CEP7, CEP9)x2[200], (CCND1,IGH)x3(CCND1 con IGHx2)[/100],(JOSE CARLOS, p53)x2[150],(CEP12,D 34T379,LAMP1)x2[200] (IGHx2)(5'IGH sep 3'IGHx1)[41/100],(IG Hx3,MAFx2)[] Abnormal 9 2:13 PM [facility]TO[facility]OM[facility] Interpretation FISH [...] Clinicopathological correlation is suggested. 9 2:13 PM [facility]TO[facility] at 1413 CDT Disclaimer *This test was developed, and its performance characteristics determined by [facility]'s [facility] Molecular Cytogenetics Laboratory as [...] with cytogenetic findings. 9 2:13 PM CDT [facility] Client [facility] #[id number] 9 2:13 PM CDT [facility]OMIC LAB Embedded Images 9 2:13 PM T [facility]OMIC LAB Other BONE MARROW SPECIMEN / Unknown 01/13/2019 10:30 AM CDT 01/14/2019 9:47 AM CDT us Justyn Soria MD LAB - PATHOLOGY/CYTOLOGY ORDER JADA Final Result [facility] CYTOGENOMIC LAB [place] [address] documented in this encounter Visit Diagnoses Diagnosis Monoclonal gammopathy Monoclonal paraproteinemia documented in this encounter
--- OUTSIDE RECORDS SUMMARY | 2025-03-31 11:22 | XMS_ITS | Clinical Summary ---
Author Organization [facility] Address [address] [place] [address] Phone Care Team Providers Care Leadite Man Name Role Phone Tuan Patricia DO Primary Care Provider [phone]- [phone] Tuan Patricia DO Unavailable +-[phone] Annemarie Altamirano JAVA SOFTWARE DEVELOPER Unavailable +- [phone] Allergies Active Allergy Reactions Criticality Noted Date Comments Sulfa (Sulfonamide Antibiotics) Itching,Rash Medium Medications aspirin 81 mg enteric coated tablet 06/10/2017Aspirin, po solid 81 mg Tablet, delayed release (enteric coated)POdailyCurrent Medication 017 Active calcium carbonate-vit reich D3 600 mg calcium- 200 unit capsule 06/10/2017Calcium + d, po solid 600 mg-100 Capsule(s)POdailyCurrent Medication 017 Active omega 0-fos-sgx-fis h oil 100-160-1,000 mg capsule 06/10/2017Fish oil [...] Description 01/03/2025 11:00 AM CDT Office Visit [facility] [place] [facility] [address] [place] [phone] Kristina Bobo MD MGUS (monoclonal gammopathy of unknown significance) (Primary Dx); Monoclonal gammopathy of unknown significance; Smoldering myeloma from Last 3 Months Immunizations Immunization Administration [...] on file 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
--- OUTSIDE RECORDS SUMMARY | 2025-03-31 11:22 | XMS_ITS | Encounter Summary ---
Author Organization [facility] Address [address] [facility] [place] [address] Care Team Providers Care Account Services Associate Name Role Phone Unavailable Primary Care Provider Unavailabl e Encounter Details Date Type Department Care Team (Late st Contact Info) Description 01/13/2019 Lab Requisition [facility] Pathology Lab [address] [place] [address] Keegan Perez MD [address] [address] Monoclonal gammopathy Social History Tobacco [...] MARROW (01/13/2019) Case Report Flow Cytometry Case: [id number] Authorizing Provider: Keegan Perez MD Collected: 01/13/2019 Pathologist: Silvana Mcbride MD Received: 01/13/2019 04:02 PM Specimen: Bone Marrow 01/14/2019 11:03 AM [facility] Final Diagnosis Bone marrow, flow cytometric immunophenotypic analysis: - Plasma cell dyscrasia. - No evidence of non-Hodgkin lymphoma or high grade myeloid neoplasm. - See interpretation. 01/14/2019 11:03 AM CDT U PATHOLOGY LAB at [address] [facility] Flow Cytometry Interpretation The bone marrow aspirate [...] the flow cytometry specimen is reviewed for senior quality assurance engineer purposes. In summary, the bone marrow specimen [...] of this process. KR 01/14/2019 11:03 AM [facility] PATHOLOGY LAB Flow Cytometry Results Differential Result Comment Flow Cell Count /uL 8400 Total Viability % 100.0 Lymphocytes % 44 Dim CD45 Region % 2 Monocytes % 2 Granulocytes % 50 01/14/2019 11:03 AM [facility] PATHOLOGY LAB Reason for test Monoclonal gammopathy 273.1 01/14/2019 11:03 AM [facility] PATHOLOG[facility] LAB Client Specimen ID # [id number] 01/14/2019 11:03 AM [facility] PATHOLOG[facility] LAB Number of markers 14 were performed. A Flow CD10 A Flow CD13 A Flow CD20 A Flow CD117 A FLOW CD138 A Flow CD5 A Flow CD19 A Flow CD33 A Flow CD34 A Flow CD45 A Flow CD38 A Flow CD56 A [place]+CD19+ A Lambda+CD19+ 01/14/2019 11:03 AM [facility] PATHOLOG[facility] LAB Disclaimer Test performed at [facility], [address] [place], [place], [address]. *The established laboratory minimum viability is 70%. [...] complexity clinical testing. 01/14/2019 11:03 AM CDT [facility] PATHOLOGY LAB Embedded Images 11:03 AM CDT [facility] PATH[facility] LAB Pathology/Cytolog y BONE MARROW SPECIMEN / Unknown 01/13/2019 01/13/2019 4:02 PM CDT us Keegan Perez MD LAB - PATHOLOGY/CYTOLOGY ORDER JADA Final Result [facility] PATHOLOGY LAB [address] [place], [place] [id number] [place] [address] documented in this encounter Visit Diagnoses Diagnosis Monoclonal gammopathy Monoclonal paraproteinemia documented in this encounter
[2025-03-31 13:15] LABS: Iron 63 ug/dL (37-170)
[2025-03-31 13:34] LABS: Percent Iron Saturation 27 % (20-50)
[2025-03-31 13:45] LABS: Hepatitis B Surface Antigen Negative (Negative)
[2025-03-31 13:49] LABS: HIV 1/2 Ab P24 Ag Result Negative (Negative)
== END 2025-03-31 10:50 | disposition home or self-care (01) ==
PROVIDERS: PCP Internal Medicine; Visit Provider Nurse Practitioner
DX: Z29.81 Encounter for HIV pre-exposure prophylaxis (principal); R74.8 Abnormal levels of other serum enzymes; Z11.4 Encounter for screening for human immunodeficiency virus [HIV]
CPT/HCPCS: 36415; 83540; 83550; 86703; 86803; 87340; G0432

== ENCOUNTER 2025-04-05 10:24 | Outpatient (CLI) | payer MEDICARE, OTHER, SELFPAY ==
--- NOTE | ~2025-04-05 | US_ITS ---
ULTRASOUND ABDOMEN LIMITED (RIGHT UPPER QUADRANT) Clinical History: R74.8 - Abnormal levels of other serum enzymes Comparison: None Technique: Right upper quadrant sonography Findings: Liver: Normal size. Normal echotexture. No intrahepatic biliary ductal dilatation. Normal hepatopedal flow main portal vein. Common Duct: 8 mm after cholecystectomy. Gallbladder: Removed. Calcified focus within gallbladder fossa. Pancreas: Unremarkable. IMPRESSION: 1. No acute findings. 2. Persistent stone or calcification within gallbladder fossa, present on prior CT. Reviewed, dictated and finalized at location R. IMPRESSION: 1. No acute findings. 2. Persistent stone or calcification within gallbladder fossa, present on prio r CT.
--- OUTSIDE RECORDS SUMMARY | 2025-04-05 11:23 | XMS_ITS | Clinical Summary ---
Author Organization [facility] Address [address] [facility] [address] [place] [address] Phone Care Team Providers Care Director Of Laboratory Operations Name Role Phone Tuan Patricia DO Primary Care Provider [phone]- [phone] Tuan Patricia DO Unavailable [phone] Annemarie Altamirano YOGHURT MAKER Unavailable +- [phone] Allergies Active Allergy Reactions Criticality Noted Date Comments Sulfa (Sulfonamide Antibiotics) Itching,Rash Medium Medications aspirin 81 mg enteric coated tablet 06/10/2017Aspirin, po solid 81 mg Tablet, delayed release (enteric coated)POdailyCurrent Medication 017 Active calcium carbonate-vit reich D3 600 mg calcium- 200 unit capsule 06/10/2017Calcium + d, po solid 600 mg-100 Capsule(s)POdailyCurrent Medication 017 Active omega 7-mmn-pja-fis h oil 100-160-1,000 mg capsule 06/10/2017Fish oil [...] Description 01/03/2025 11:00 AM CDT Office Visit [facility] [place] [facility] [address] [place] [phone] Kristina Bobo MD MGUS (monoclonal gammopathy of [...] on file 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
== END 2025-04-05 10:25 | disposition home or self-care (01) ==
PROVIDERS: PCP Internal Medicine; Visit Provider Nurse Practitioner
DX: R74.8 Abnormal levels of other serum enzymes (principal)
CPT/HCPCS: 76705

== ENCOUNTER 2025-05-31 08:44 | Outpatient (CLI) | payer MEDICARE, OTHER, SELFPAY ==
--- OUTSIDE RECORDS SUMMARY | 2025-05-31 08:56 | XMS_ITS | Encounter Summary ---
Author Organization [facility] Address [address] [facility] [address] Care Team Providers Care Reconciliation Clerk Name Role Phone Unavailable Primary Care Provider Unavailabl e Encounter Details Date Type Department Care Team (Late st Contact Info) Description 01/13/2019 Lab Requisition [facility] Pathology Lab [address] [place] [address] Keegan Perez MD [phone] [address] Monoclonal gammopathy Social History Tobacco [...] MARROW (01/13/2019) Case Report Flow Cytometry Case: [id number] Authorizing Provider: Keegan Perez MD Collected: 01/13/2019 Pathologist: Silvana Mcbride MD Received: 01/13/2019 04:02 PM Specimen: Bone Marrow 01/14/2019 11:03 AM [facility] PATHOLOGY LAB Final Diagnosis Bone marrow, flow cytometric immunophenotypic analysis: - Plasma cell dyscrasia. - No evidence of non-Hodgkin lymphoma or high grade myeloid neoplasm. - See interpretation. 01/14/2019 11:03 AM CDT U PATHOLOGY LAB at [address] [facility] Flow Cytometry Interpretation The bone marrow [...] the flow cytometry specimen is reviewed for air quality technician purposes. In summary, the bone marrow specimen [...] of this process. KR 01/14/2019 11:03 AM [facility] PATHOLOGY LAB Flow Cytometry Results Differential Result Comment Flow Cell Count /uL 8400 Total Viability % 100.0 Lymphocytes % 44 Dim CD45 Region % 2 Monocytes % 2 Granulocytes % 50 01/14/2019 11:03 AM [facility] PATH[facility] Reason for test Monoclonal gammopathy 273.1 01/14/2019 11:03 AM [facility] PATH[facility] Client Specimen ID # [id number] 01/14/2019 11:03 AM [facility] PATH[facility] Number of markers 14 were performed. A Flow CD10 A Flow CD13 A Flow CD20 A Flow CD117 A FLOW CD138 A Flow CD5 A Flow CD19 A Flow CD33 A Flow CD34 A Flow CD45 A Flow CD38 A Flow CD56 A [place]+CD19+ A Lambda+CD19+ 01/14/2019 11:03 AM [facility] PATH[facility] Disclaimer Test performed at [facility] [place] [facility], [address] [place], [place], [address]. *The established laboratory minimum viability is 70%. [...] complexity clinical testing. 01/14/2019 11:03 AM CDT [facility] PATHOLOGY LAB Embedded Images 11:03 AM CDT [facility] PATH[facility] LAB Pathology/Cytolog y BONE MARROW SPECIMEN / Unknown 01/13/2019 01/13/2019 4:02 PM CDT us Keegan Perez MD LAB - PATHOLOGY/CYTOLOGY ORDER JADA Final Result [facility] PATHOLOG[facility] LAB [address] [place], [place] [id number] [place] [address] documented in this encounter Visit Diagnoses Diagnosis Monoclonal gammopathy Monoclonal paraproteinemia documented in this encounter
--- OUTSIDE RECORDS SUMMARY | 2025-05-31 08:56 | XMS_ITS | Clinical Summary ---
Author Organization [facility] Address [address] [place] [address] Care Team Providers Care Fretted Instrument Maker Hand Name Role Phone Unavailable Primary Care Provider Unavailabl e Source Comments [facility],non-owned Affiliates and Associated Physician Practices is amultiple site organization consisting of ambulatory clinics and hospital sitesin [place], [place] and [place]. This disclosure is being madepursuant to the Care Everywhere program and may not contain all information available regarding this patient. Last updated 18.[facility] Social History Tobacco Use Types Packs/Day Years [...] DEPRESSION SCREENING 06/30/2024 COVID-19 VACCINE (1 - 2024-2 6 season) 2025 INFLUENZA VACCINE (#1) 2025 Respiratory [...]
--- OUTSIDE RECORDS SUMMARY | 2025-05-31 08:56 | XMS_ITS | Clinical Summary ---
Author Organization [facility] Address [address] [facility] [place] [address] Phone Care Team Providers Care Heeler Machine Name Role Phone Tuan Patricia DO Primary Care Provider [phone]- [phone] Tuan Patricia DO Unavailable [phone] Annemarie Altamirano RECOVERY AUDITOR Unavailable +- [phone] Allergies Active Allergy Reactions Criticality Noted Date Comments Sulfa (Sulfonamide Antibiotics) Itching,Rash Medium Medications aspirin 81 mg enteric coated tablet 06/10/2017Aspirin, po solid 81 mg Tablet, delayed release (enteric coated)POdailyCurrent Medication 017 Active calcium carbonate-vit reich D3 600 mg calcium- 200 unit capsule 06/10/2017Calcium + d, po solid 600 mg-100 Capsule(s)POdailyCurrent Medication 017 Active omega 9-zxi-adx-fis h oil 100-160-1,000 mg capsule 06/10/2017Fish oil [...] on file 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
--- OUTSIDE RECORDS SUMMARY | 2025-05-31 08:56 | XMS_ITS | Encounter Summary ---
Author Organization [facility] Address [address] [facility] [place] [address] Care Team Providers Care Tennis Professional Name Role Phone Unavailable Primary Care Provider Unavailabl e Encounter Details Date Type Department Care Team (Late st Contact Info) Description 01/14/[address] [facility] - Lab Cytogenetics [address] [place], [place] [phone] Justyn Soria MD [address] [facility] [place], [place] [phone] Monoclonal gammopathy Social History Tobacco Use Types [...] for Study MGUS 9 2:13 PM CDT [facility] MOLE[facility]ULAR CYTOGENOMIC LAB Results Cytogenetics Fluorescence In-Situ Hybridization (FISH): Analysis of 100 to 200 interphase cells obtained from a sample enriched with CD-138 plasma cells and hybridized with each of dual labeled (directed onto) CDKN2/CKS1B/ (1p32.3/1q21), dual labeled dual fusion FGFR3/IGH (4p16/14q32), CCND1/IGH (11q13/14q32, dual labeled ATM1/P53 (11q22.3/17p13.1), triple labeled [id number]/LAMP1/CEP12 (13q14/13q34/cent12) , and dual labeled dual fusion MAF/IGH (16q23/IGH), dual labeled IGH break-apart probe* directed onto 14q32 and with specific centromere probes of chromosomes 7 and 9 specific fluorescent labeled probes* showed the following results: nuc rachel(WZIA7Iz8,QTH0Wa1 )[15100],(GXZV7y9,I GHx3)[],(CEP7, CEP9)x2[200], (CCND1,IGH)x3(CCND1 con IGHx2)[/100],(JOSE CARLOS, p53)x2[150],(CEP12,D 83Q114,LAMP1)x2[200] (IGHx2)(5'IGH sep 3'IGHx1)[41/100],(IG Hx3,MAFx2)[] Abnormal 9 2:13 PM [facility] CYTO[facility]OMIC [facility] Interpretation FISH of multiple [...] Clinicopathological correlation is suggested. 9 2:13 PM [facility] CY[facility] at 1413 CDT Disclaimer *This test was developed, and its performance characteristics determined by [facility] Molecular Cytogenetics Laboratory as required by CLIA [...] with cytogenetic findings. 9 2:13 PM CDT [facility] CYTOGENOMIC [facility] Client [facility] - #[id number] 9 2:13 PM CDT [facility] CYTOGENOMIC [facility] Embedded Images 9 2:13 PM T [facility] CYTOGENOMIC [facility] Other BONE MARROW SPECIMEN / Unknown 01/13/2019 10:30 AM CDT 01/14/2019 9:47 AM CDT us Justyn Soria MD LAB - PATHOLOGY/CYTOLOGY ORDER JADA Final Result [facility] CYTOGENOMIC LAB [facility] [place] [address] documented in this encounter Visit Diagnoses Diagnosis Monoclonal gammopathy Monoclonal paraproteinemia documented in this encounter
--- OUTSIDE RECORDS SUMMARY | 2025-05-31 08:56 | XMS_ITS | Encounter Summary ---
Author Organization [facility] Address [address] [place] [address] Care Team Providers Care Housing Relocation Name Role Phone Unavailable Primary Care Provider Unavailabl e Encounter Details Date Type Department Care Team (Late st Contact Info) Description 01/14/2019 Lab Requisition [facility] Care Pathology Lab [address] [place] [address] Keegan Perez MD [address] [address] Social History Tobacco Use Types [...] Report Bone Marrow Patholog y Report Case: [id number] Authorizing Provider: Keegan Perez MD Collected: 01/13/2019 [...] See microscopic description. 01/29/2019 4:10 PM [facility] PATHOLOGY LAB at 1727 CDT AP [...] this process. KR 01/29/2019 4:10 PM [facility] PATHOLOG[facility] LAB Peripheral Smear Description CBC [...] Platelet morphology: normal. 01/29/2019 4:10 PM [facility] PATH[facility] LAB Bone Marrow Aspirate Differential [...] special stain): decreased. 01/29/2019 4:10 PM [facility] PATH[facility] LAB Bone Marrow Core Biopsy [...] the bone marrow core biopsy in the [facility] Department of Pathology. Controls are appropriately reactive. CD138 highlights increased plasma cells, estimated to comprise 20% of the marrow cellularity. These cells are arranged singly and in small clusters. CD3 and CD20 highlight interstitial T-cells and B-cells, respectively. The lymphoid aggregate is no longer in the section on the immunohistochemical stains. 01/29/2019 4:10 PM [facility] PATH[facility] Flow Cytometry Summary Concurrent flow cytometry ([id number]) shows bone marrow involvement by a plasma cell dyscrasia with no evidence of non-Hodgkin lymphoma or high grade myeloid neoplasm. 01/29/2019 4:10 PM [facility] PATHOLOG[facility] LAB Clinical History 68 year old woman with a history of MGUS. 01/29/2019 4:10 PM [facility] PATH[facility] Materials Received Received are 15 slides and 2 blocks labeled as [id number] along with the outside pathology report. [place] [address]. All materials are returned to the referring institution, along with a copy of our final report. 01/29/2019 4:10 PM [facility] PATH[facility] Disclaimer The performance characteristics of all immunohistochemical and indirect immunofluorescence stains (if any) cited in this report were determined by the Histopathology Laboratory of [facility]. Some of these tests were developed [...] [facility], [address] [place] [address]. 01/29/2019 4:10 PM CDT [facility] PATHOLOGY LAB Addendum 1 This addendum is issued to report the results of cytogenetics and FISH performed at [facility], [address] [place] [address], [address], [place] [id number]. A normal female karyotype (46,XX[20]) is reported ([id number]). FISH was performed for the myeloma panel. A gain of 1q21 was detected in 23% of cells. A CCND1/IGH translocation is reported in 57% of nuclei ([id number]). Please see the reference lab report for additional details. KR 01/29/2019 4:10 PM CDT [facility] PATHOLOGY LAB Addendum electronically signed by Silvana Mcbride MD on 01/29/2019 at 1610 CDT Embedded Images 01/29/2019 4:10 PM CDT [facility] PATHOLOGY LAB Pathology/Cytology SPECIMEN FROM BONE [...] JADA Edited Result - Final [facility] PATHOLOGY LAB [address] [place] [address], [facility] [phone] documented in this encounter Visit Diagnoses Not on filedocumented in this encounter
== END 2025-05-31 08:45 | disposition home or self-care (01) ==
LOC: ANHAUDIO 08:45
PROVIDERS: PCP Nurse Practitioner; Visit Provider Nurse Practitioner
DX: H93.13 Tinnitus, bilateral (principal); H90.3 Sensorineural hearing loss, bilateral
CPT/HCPCS: 92557; 92567

== ENCOUNTER 2025-06-15 08:15 | Outpatient (CLI) | payer MEDICARE, OTHER, SELFPAY ==
--- OUTSIDE RECORDS SUMMARY | 2025-06-15 08:34 | XMS_ITS | Encounter Summary ---
Author Organization [facility] Address [address] [facility] [address] Care Team Providers Care Armored Car Driver Name Role Phone Unavailable Primary Care Provider Unavailabl e Encounter Details Date Type Department Care Team (Late st Contact Info) Description 01/13/2019 Lab Requisition [facility] Pathology Lab [address] [place] [address] Keegan Perez MD [address] [address] Monoclonal gammopathy Social History Tobacco [...] MARROW (01/13/2019) Case Report Flow Cytometry Case: [id number] Authorizing Provider: Keegan Perez MD Collected: 01/13/2019 Pathologist: Silvana Mcbride MD Received: 01/13/2019 04:02 PM Specimen: Bone Marrow 01/14/2019 11:03 AM [facility] Final Diagnosis Bone marrow, flow cytometric immunophenotypic analysis: - Plasma cell dyscrasia. - No evidence of non-Hodgkin lymphoma or high grade myeloid neoplasm. - See interpretation. 01/14/2019 11:03 AM CDT U PATHOLOGY LAB at [address] [facility] Flow Cytometry Interpretation The bone marrow aspirate [...] cytometry specimen is reviewed for quality control coordinator purposes. In summary, the bone marrow specimen [...] of this process. KR 01/14/2019 11:03 AM [facility] PATHOLOGY LAB Flow Cytometry Results Differential Result Comment Flow Cell Count /uL 8400 Total Viability % 100.0 Lymphocytes % 44 Dim CD45 Region % 2 Monocytes % 2 Granulocytes % 50 01/14/2019 11:03 AM [facility] PATHOLOGY LAB Reason for test Monoclonal gammopathy 273.1 01/14/2019 11:03 AM [facility] PATHOLOGY LAB Client Specimen ID # [id number] 01/14/2019 11:03 AM [facility] PATHOLOGY LAB Number of markers 14 were performed. A Flow CD10 A Flow CD13 A Flow CD20 A Flow CD117 A FLOW CD138 A Flow CD5 A Flow CD19 A Flow CD33 A Flow CD34 A Flow CD45 A Flow CD38 A Flow CD56 A [place]+CD19+ A Lambda+CD19+ 01/14/2019 11:03 AM [facility] PATHOLOG[facility] LAB Disclaimer Test performed at [facility] [place] [facility], [address] [place], [place], [address]. *The established laboratory minimum viability is 70%. [...] complexity clinical testing. 01/14/2019 11:03 AM CDT [facility] PATHOLOGY LAB Embedded Images 11:03 AM CDT [facility] PATHOLOGY LAB Pathology/Cytolog y BONE MARROW SPECIMEN / Unknown 01/13/2019 01/13/2019 4:02 PM CDT us Keegan Perez MD LAB - PATHOLOGY/CYTOLOGY ORDER JADA Final Result [facility] PATHOLOGY LAB [address] [place], [place] [id number] [place] [address] documented in this encounter Visit Diagnoses Diagnosis Monoclonal gammopathy Monoclonal paraproteinemia documented in this encounter
--- OUTSIDE RECORDS SUMMARY | 2025-06-15 08:34 | XMS_ITS | Encounter Summary ---
Author Organization [facility] Address [address] [place] [address] Care Team Providers Care [employer] French Teacher Name Role Phone Unavailable Primary Care Provider Unavailabl e Encounter Details Date Type Department Care Team (Late st Contact Info) Description 01/14/2019 Lab Requisition [facility] Care Pathology Lab [address] [place] [address] Keegan Perez MD [address] [address] Social History Tobacco Use Types [...] Report Bone Marrow Patholog y Report Case: [id number] Authorizing Provider: Keegan Perez MD Collected: 01/13/2019 [...] - See microscopic description. 01/29/2019 4:10 PM [facility] PATH[facility] at 1727 CDT AP [...] of this process. KR 01/29/2019 4:10 PM [facility] Peripheral Smear Description CBC [...] normal. Platelet morphology: normal. 01/29/2019 4:10 PM [facility] Bone Marrow Aspirate Differential [...] (by special stain): decreased. 01/29/2019 4:10 PM [facility] Bone Marrow Core Biopsy [...] the bone marrow core biopsy in the [facility] Department of Pathology. Controls are appropriately reactive. CD138 highlights increased plasma cells, estimated to comprise 20% of the marrow cellularity. These cells are arranged singly and in small clusters. CD3 and CD20 highlight interstitial T-cells and B-cells, respectively. The lymphoid aggregate is no longer in the section on the immunohistochemical stains. 01/29/2019 4:10 PM [facility] Flow Cytometry Summary Concurrent flow cytometry ([id number]) shows bone marrow involvement by a plasma cell dyscrasia with no evidence of non-Hodgkin lymphoma or high grade myeloid neoplasm. 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 01/29/2019 4:10 PM [facility] Materials Received Received are 15 slides and 2 blocks labeled as [id number] along with the outside pathology report. [place] [address]. All materials are returned to the referring institution, along with a copy of our final report. 01/29/2019 4:10 PM [facility] Disclaimer The performance characteristics of all immunohistochemical and indirect immunofluorescence stains (if any) cited in this report were determined by the Histopathology Laboratory of [facility]. Some of these tests were developed by [...] [facility], [address] [place] [address]. 01/29/2019 4:10 PM CDT [facility] PATHOLOGY LAB Addendum 1 This addendum is issued to report the results of cytogenetics and FISH performed at [facility], [address] [place] [address], [address], [place] [id number]. A normal female karyotype (46,XX[20]) is reported ([id number]). FISH was performed for the myeloma panel. A gain of 1q21 was detected in 23% of cells. A CCND1/IGH translocation is reported in 57% of nuclei ([id number]). Please see the reference lab report for additional details. KR 01/29/2019 4:10 PM CDT [facility] PATHOLOGY [facility] Addendum electronically signed by Silvana Mcbride MD on 01/29/2019 at 1610 CDT Embedded Images 01/29/2019 4:10 PM CDT [facility] PATHOLOGY LAB Pathology/Cytology SPECIMEN FROM BONE MARROW [...] ORDER JADA Edited Result - Final [facility] PATHOLOGY LAB [address] [place] [address], [facility] [phone] documented in this encounter Visit Diagnoses Not on filedocumented in this encounter
--- OUTSIDE RECORDS SUMMARY | 2025-06-15 08:34 | XMS_ITS | Clinical Summary ---
Author Organization [facility] Address [address] [place] [address] Phone Care Team Providers Care Ad Operations Associate Name Role Phone Tuan Patricia DO Primary Care Provider [phone] Tuan Patricia DO Unavailable [phone] Annemarie Altamirano SERVICE DELIVERY CONSULTANT Unavailable [phone]- [phone] Allergies Active Allergy Reactions Criticality Noted Date Comments Sulfa (Sulfonamide Antibiotics) Itching,Rash Medium Medications aspirin 81 mg enteric coated tablet 06/10/2017Aspirin, po solid 81 mg Tablet, delayed release (enteric coated)POdailyCurrent Medication 017 Active calcium carbonate-vit reich D3 600 mg calcium- 200 unit capsule 06/10/2017Calcium + d, po solid 600 mg-100 Capsule(s)POdailyCurrent Medication 017 Active omega 2-qlu-qjn-fis h oil 100-160-1,000 mg capsule 06/10/2017Fish oil [...] on file 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
--- OUTSIDE RECORDS SUMMARY | 2025-06-15 08:34 | XMS_ITS | Clinical Summary ---
Author Organization [facility] Address [address] [place] [address] Care Team Providers Care Screen Stretcher Name Role Phone Unavailable Primary Care Provider Unavailabl e Source Comments [facility],non-owned Affiliates and Associated Physician Practices is amultiple site organization consisting of ambulatory clinics and hospital sitesin [place], [place], [place] and [place]. This disclosure is being madepursuant to the Care Everywhere program and may not contain all information available regarding this patient. Last updated 18.[facility] Social History Tobacco Use Types Packs/Day Years [...]
--- OUTSIDE RECORDS SUMMARY | 2025-06-15 08:34 | XMS_ITS | Encounter Summary ---
Author Organization [facility] Address [address] [place] [address] Care Team Providers Care Pumping Station Supervisor Name Role Phone Unavailable Primary Care Provider Unavailabl e Encounter Details Date Type Department Care Team (Late st Contact Info) Description 01/14/2019 Lab Requisition [facility] - Lab Cytogenetics [address] [place], [place] [id number] Justyn Soria MD [address] [facility] [address] [place], [place] [id number] Monoclonal gammopathy Social History Tobacco Use Types [...] for Study MGUS 9 2:13 PM CDT [facility] MOLECULAR CYTOGENOMIC LAB Results Cytogenetics Fluorescence In-Situ Hybridization (FISH): Analysis of 100 to 200 interphase cells obtained from a sample enriched with CD-138 plasma cells and hybridized with each of dual labeled (directed onto) CDKN2/CKS1B/ (1p32.3/1q21), dual labeled dual fusion FGFR3/IGH (4p16/14q32), CCND1/IGH (11q13/14q32, dual labeled ATM1/P53 (11q22.3/17p13.1), triple labeled B12J813/LAMP1/CEP12 (13q14/13q34/cent12) , and dual labeled dual fusion MAF/IGH (16q23/IGH), dual labeled IGH break-apart probe* directed onto 14q32 and with specific centromere probes of chromosomes 7 and 9 specific fluorescent labeled probes* showed the following results: nuc rachel(REYY1Lw7,TVH4Hg3 )[15100],(LKJR6s6,I GHx3)[],(CEP7, CEP9)x2[200], (CCND1,IGH)x3(CCND1 con IGHx2)[/100],(JOSE CARLOS, p53)x2[150],(CEP12,D 03C927,LAMP1)x2[200] (IGHx2)(5'IGH sep 3'IGHx1)[41/100],(IG Hx3,MAFx2)[] Abnormal 9 2:13 PM [facility] CYTOGENOMIC LAB Interpretation FISH [...] Clinicopathological correlation is suggested. 9 2:13 PM [facility] MO[facility] CYTOGENOMIC LAB at 1413 CDT Disclaimer *This test was developed, and its performance characteristics determined by [facility] Molecular Cytogenetics Laboratory as required by [...] with cytogenetic findings. 9 2:13 PM CDT [facility] CYTOGENOMIC LAB Client [facility] - #[id number] 9 2:13 PM CDT [facility] CYTOGENOMIC LAB Embedded Images 9 2:13 PM T [facility] CYTOGENOMIC LAB Other BONE MARROW SPECIMEN / Unknown 01/13/2019 10:30 AM CDT 01/14/2019 9:47 AM CDT us Justyn Soria MD LAB - PATHOLOGY/CYTOLOGY ORDER JADA Final Result [facility] CYTOGENOMIC [facility] [place] [address] documented in this encounter Visit Diagnoses Diagnosis Monoclonal gammopathy Monoclonal paraproteinemia documented in this encounter
[2025-06-15 19:51] LABS: Alanine Aminotransferase 10 U/L (6-35); Albumin Level 4.2 g/dL (3.5-5.1); Alkaline Phosphatase 78 U/L (38-126); Aspartate Amino Transferase 34 U/L (14-36); Bilirubin,Total 0.6 mg/dL (0.2-1.3); Total Protein 7.6 g/dL (6.3-8.2)
== END 2025-06-15 08:16 | disposition home or self-care (01) ==
PROVIDERS: PCP Nurse Practitioner; Visit Provider Nurse Practitioner
DX: R74.8 Abnormal levels of other serum enzymes (principal)
CPT/HCPCS: 36415; 80076